=== PATIENT | male | born 1970 | race Caucasian/White ===

== ENCOUNTER 2016-09-29 19:18 | Inpatient (IN) | payer OTHER ==
--- NOTE | ~2016-09-29 | CN ---
Consultation Report [facility] [address] [place]. [address] NAME: JUANITA TORIBIO : 66 STATUS : ADM IN PAT#: [id number] AGE: 46 ADM/REG DATE : 09/29/16 MR#: [id number] REPORT SERV DATE: 09/29/16 DICTATED BY: JEFFREY CUEVAS DATE: 09/29/16 REPORT STATUS : Draft TRANSCRIBED BY: MODL DATE: 09/29/16 CONSULT DATE OF CONSULTATION: 09/29/2016 CONSULTING PHYSICIAN: Cristopher Love M.D. REASON FOR CONSULTATION: Ventilator management. HISTORY OF PRESENT ILLNESS: The patient is a 46-year-old white gentleman with past medical history of hepatitis C and cirrhosis, with a history of esophageal varices, with a history of bleeding followed by Dr. Madrigal, as well as chronic thrombocytopenia, who was admitted to outside hospital back on 09/14/2016 after presenting with shortness of breath, nonproductive cough, malaise, body aches, worsening confusion, lethargy, and generalized weakness. At that time, he was found to have a multifocal bilateral pneumonia and was intubated in the emergency room for respiratory failure and altered mental status. In reviewing the outside records, the best I can tell, he has been treated with antibiotics for his pneumonia, and at some point had a bronchoscopy which grew MRSA. He appears to have a chest x-ray and chest CTs that show worsening right-sided loculated effusion that is concerning for complicated parapneumonic effusion or empyema, and he was, therefore, transferred here to Dr. Love's service for consideration of VATS procedure. He remains on the ventilator, so we are consulted for ventilator management. Currently, the patient is hemodynamically stable in the ICU though his blood pressure is a little borderline. He does have some bright red blood in his OG tube. Otherwise, he is sedated and stable. PAST MEDICAL HISTORY: 1. Hepatitis C. 2. Cirrhosis. 3. Chronic thrombocytopenia. 4. Portal hypertension. 5. History of esophageal varices with a history of bleeding, followed by Dr. Madrigal. 6. History of cholecystectomy. 7. History of microdiscectomy. HOME MEDICATIONS: See medication reconciliation form. ALLERGIES: NO KNOWN DRUG ALLERGIES. SOCIAL HISTORY: A 30- to 64-[id number]-[id number] history of tobacco use. No alcohol or IV drug abuse. FAMILY HISTORY: Per the chart. Father and brother with heart disease. Hypertension in his mother. REVIEW OF SYSTEMS: Consultation Report [place] [address] [place]. [address] NAME: JUANITA TORBIIO : 66 STATUS : ADM IN PAT#: [id number] AGE: 46 ADM/REG DATE : 09/29/16 MR#: [id number] REPORT SERV DATE: 09/29/16 DICTATED BY: JEFFREY CUEVAS DATE: 09/29/16 REPORT STATUS : Draft TRANSCRIBED BY: TRUNG DATE: 09/29/16 Unable to obtain secondary to intubation and sedation. PHYSICAL EXAMINATION: VITAL SIGNS: Temperature afebrile, heart rate 84, respiratory rate 23, and blood pressure 103/52. GENERAL: Sedated and intubated. HEENT: Pupils equal, round, and reactive to light. Extraocular movements intact. Oropharynx clear. NECK: ET tube in place. Supple and nontender. No lymphadenopathy. No thyromegaly. LUNGS: Coarse breath sounds bilaterally. No wheezes. CARDIOVASCULAR: Regular rate and rhythm. No murmurs, rubs, or gallops. ABDOMEN: Soft, nontender, and nondistended. Positive bowel sounds. No hepatosplenomegaly. EXTREMITIES: No cyanosis, clubbing, or edema. NEUROLOGIC: Sedated. PSYCHIATRIC: Unable to assess. LABS AND IMAGING: Pending at the time of dictation. ASSESSMENT AND PLAN: The patient is a 46-year-old gentleman with past medical history of hepatitis C cirrhosis with esophageal varices with a history of bleeding, who presented to an outside hospital, found to have a multifocal pneumonia with a hospital course complicated by loculated right-sided pleural effusion concerning for parapneumonic effusion versus empyema. He is transferred here to the CT Surgery Service for consideration of a VATS surgery. We will get an ABG and a chest x-ray and wean the patient's ventilator as tolerated. We will also try to get his outside CT scan that he had done 2 days ago so the surgeons can review this. We will continue vancomycin and Zosyn. Cultures at the outside hospital were positive for MRSA. We will repeat sputum cultures here. We will also repeat blood cultures x2. The patient has borderline blood pressure right now, so we have given him some IV fluids and we will start Levophed if needed to maintain a MAP greater than 65. The patient is also having some bright red blood in his OG tube. He does have a history of esophageal varices. No record of bleeding at the outside hospital. We will send a stat CBC and trend his CBCs q.6 hours for the next 24 hours. We will also start him on an octreotide and Protonix drip and get Dr. Madrigal to see the patient tomorrow. We will continue to follow along the patient with you. Please call with questions. I appreciate the consult. Total critical care time spent on this patient was 45 minutes. SVITLANA/TRUNG Jeffrey Cuevas MD / [id number]
--- NOTE | ~2016-09-29 | DS ---
Discharge Summary [facility] [address] [place]. [address] NAME: JUANITA TORIBIO : 66 STATUS : DIS IN PAT#: [id number] AGE: 46 ADM/REG DATE : 09/29/16 MR#: [id number] REPORT SERV DATE: 10/23/16 DICTATED BY: VANESSA LVOE JR. DATE: 10/22/16 REPORT STATUS : Draft TRANSCRIBED BY: MODAvani DATE: 10/22/16 Data Collection from hospitalization DISCHARGE DIAGNOSES: 1. ( ). 2. ( ). 3. ( ). CONSULTATIONS: 1. Juan Cuevas MD. 2. Keven Ramos M.D. 3. LAURIE Cortez. 4. Nell Corcoran M.D. PROCEDURES PERFORMED: 1. Placement of left chest tube on 10/01/2016. 2. Chest tube placement under fluoroscopic control on 09/30/2016. 3. Abdominal ultrasound on 10/06/2016. 4. Ultrasound-guided paracentesis on 10/07/2016. PATHOLOGY: Peritoneal fluid, right quadrant paracentesis (smears, ThinPrep, and cell block) - benign, no malignant cells identified, mixed inflammatory cells background noted. Peritoneal fluid, right quadrant paracentesis (smears, ThinPrep, and cell block) - benign, no malignant cells identified, mixed inflammatory cell background noted. MEDICATIONS: 1. ( ). 2. ( ). CONDITION AT DISCHARGE: Stable. DISPOSITION: The patient was transferred to [facility]. HOSPITAL COURSE: This is a 46-year-old man who began having a respiratory illness and presented to the emergency room at [facility] on 09/14/2016. Prior to this admission for one week, he has had fatigue and was exposed to other family members who were sick. At the time of admission, he had a significant decline in his respiratory status and required intubation. He was progressively becoming more ill and was felt to be septic. He has a past medical history significant for hepatitis C, cirrhosis, esophageal varices, and chronic thrombocytopenia. It was felt that he would need to undergo a bronchoscopy on 09/15/2016. He underwent bronchoscopy, but continued to remain ill with a drop in his platelets. He continued to undergo multiple bronchoscopies over the next week with no significant improvement. He was found to have occult blood in the stool also. On 09/27/2016, a chest x-ray showed a large rapidly accumulating right pleural effusion. We were asked to transfer him to [facility] for a higher level of care and possible surgical intervention. He was admitted to the hospital at this time for further evaluation and treatment. Discharge Summary [place] [id number] [place] [address] NAME: JUANITA TORIBIO : 66 STATUS : DIS IN PAT#: [id number] AGE: 46 ADM/REG DATE : 09/29/16 MR#: [id number] REPORT SERV DATE: 10/23/16 DICTATED BY: VANESSA LOVE JR. DATE: 10/22/16 REPORT STATUS : Draft TRANSCRIBED BY: MODAvani DATE: 10/22/16 Upon admission, white count was 3.7. He was felt to have hypoxic respiratory failure, requiring mechanical intervention. Given his liver dysfunction, it was felt that he would likely require long-term chest tube. He continued to have a decline in his white count as well as low platelets. He was going to be transfused with plasma and platelets. His condition was critical at this time and it was felt that he may need further liver intervention in the near future. He had been seen by Dr. Juan Cuevas regarding ventilator management. He had been intubated in the emergency room for respiratory failure and altered mental status. He had grown MRSA when he had a bronchoscopy. Chest x-ray and chest CT had shown worsening right-sided loculated effusion that was concerning for complicated parapneumonic effusion or empyema. He had been transferred here for consideration of a VATS procedure. He remained on the ventilator. He was currently hemodynamically stable in the ICU, although his was blood pressure was a little borderline. He did have some bright red blood in his OG tube. Repeat blood cultures were obtained as well as sputum cultures. IV fluids had been started. Levophed would be started if needed to maintain MAP greater than 65%. He has a history of esophageal varices. There was no record of bleeding at the outside hospital. He was going to be started on octreotide and Protonix drip. The following day, he was seen by Dr. Keven Ramos. Creatinine level was 1.7. He was felt to have acute kidney injury post sepsis. It was suspected that he had aspiration pneumonia a couple of days prior to this admission despite being intubated. This is in a patient with immunosuppression secondary to his underlying cirrhosis and concern regarding hepatorenal syndrome, although nonoliguric in doubt. We would need to treat the pneumonia and support his volume status and follow. He had initially seen this patient at [facility] the previous week. 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 He was encephalopathic, thought to be secondary to medication versus alcohol, high ammonia. Ammonia was being corrected with lactulose. He was on sliding scale insulin. Tube feedings would be provided. The patient underwent chest tube placement under fluoroscopic control. He was seen by Dr. Riccardo Madrigal. Dr. Madrigal had agreed with placing a pigtail catheter. He felt that the patient's condition was critical. He felt that the patient was at high risk for having renal and liver failure. On 10/01/2016, he remained on the ventilator. He was seen by Luc Marcum. The patient had been on OG-tube feedings with high residuals noted. He has had a slight decrease in his hemoglobin, but at the present time it appeared to be stable. He was being maintained on an octreotide drip as well as a Protonix drip. About 900 mL of fluid had been taken off with the right chest tube. There were no plans for surgical intervention at this time by Cardiothoracic Surgery. There were no immediate plans for endoscopy unless large volume GI bleeding was present as well as a large drop in his hemoglobin. Chest x-ray appeared improved on the right side, status post chest tube placement. Reglan was initiated. Protonix was continued as well as an octreotide drip. Rifaximin was going to be continued. The patient developed respiratory distress on the ventilator. Examination revealed evidence of left tension pneumothorax. Dr. Gil Caceres placed a left chest tube. Supportive care continued. On 10/02/2016, next drip was continued. He had no overt GI bleeding. There was no blood in the NG tube. INR level was 1.6. A discussion was held with the patient's regarding his guarded/critical condition. Over the next couple of days, he remained on the ventilator. CPAP trial was going to be attempted. White blood cell count was 3.0. Vancomycin was continued. On 10/05/2016, the patient was extubated. His temperature was 99.8. Chest x-ray showed small left pneumothorax and basilar atelectasis. The patient did have low blood pressure. Discharge Summary [place] [id number] [facility] [place] [address] NAME: JUANITA TORIBIO : 66 STATUS : DIS IN PAT#: [id number] AGE: 46 ADM/REG DATE : 09/29/16 MR#: [id number] REPORT SERV DATE: 10/23/16 DICTATED BY: VANESSA LOVE JR. DATE: 10/22/16 REPORT STATUS : Draft TRANSCRIBED BY: TRUNG DATE: 10/22/16 D5W IV fluids were being provided. Levophed drip continued. He had trace edema. His abdomen was distended. We were awaiting liver cytology results. Creatinine level was now 2.19. IV Bumex was continued. Zosyn was decreased. Vancomycin was continued. His sodium level was 154. It was felt that he would need to be transferred to [place] or [facility] once his liver cytology results were back. RST and urine studies were going to be checked. The patient is not a candidate for hemodialysis. He did have a low-grade temperature. Speech/Language pathology performed a bedside swallow evaluation. He has severe aphonia and moderate/severe impaired range of motion of oral musculature and overt signs and symptoms of aspiration. He has severe dysphonia. Aspiration precautions were in place. The next day, antibiotics were continued. It was felt that the patient would need to undergo a paracentesis. An abdominal ultrasound was performed. On 10/07/2016, ultrasound-guided paracentesis was performed, 4 liters of clear yellow ascites was removed from the peritoneal cavity, not all of the fluid was removed. Spironolactone was being restarted. He still had increased O2 requirement and chest tube has been removed. FiO2 was going to be weaned. Cipro was added to his regimen. Heart rate was in the 90s. Right-sided chest tube was going to be removed as there had been no output for about 48 hours. X-ray showed bilateral infiltrates with pulmonary venous congestion. There was minimal residual left apical pneumothorax. Creatinine level was 2.51. He was evaluated by Occupational and Physical Therapy. Dr. Annemarie Newman met with the patient's . After discussing the case with all participating providers, Dr. Madrigal had communicated with the chief of liver transplant surgery at [facility]. To be a liver transplant candidate, the patient must be able to walk in the halls with a walker. At this point, he was able to sit up on the side of the bed with physical therapy assistance for about six minutes, but was not able to stand. According to Dr. Paz, the patient is not a candidate for any form of dialysis. Explained to the patient's that his best hope for survival was to get stronger for eventual OLT evaluation. He was going to be moved to the [facility]. We specifically discussed that as the patient was not a dialysis candidate and not a liver transplant candidate at this point, that ACLS/intubation would not be appropriate as it would be a bridge to ??? The patient's understood and was in agreement with this plan of care. She was going to start working along with Physical Therapy to get him stronger if feasible. She verbalized her understanding and agreement with no vent/shock/CPR. We discussed that his code status could be changed if he were to improve or become a dialysis candidate. All of her questions were answered. On 10/09/2016, creatinine level was 2.67. He was still on the Bumex drip. Urine output had increased. His diabetes was under better control. Vancomycin was continued. Vapotherm was now down to 45%. He seemed to be more responsive. The goal was to get the patient to ambulate and then to [facility] for liver transplant evaluation. Bedside swallow study was again performed. The patient had dysphonia, which indicates possible vocal fold dysfunction and compromised airway protection. There were no overt signs or symptoms of aspiration. Aspiration precautions were in place. The next day, the patient said he was thirsty. Chest x-ray showed no recurrence of right pleural effusion. Urine output had increased. On 10/12/2016, he said he was feeling better overall. The patient was seen by Dr. Nell Corcoran. He seemed to be feeling better. He was still weak and fatigued. He was coughing. He had trace bilateral lower extremity edema. Aggressive pulmonary toilet continued. He was going to be moved out of the ICU. Renal function was stable. He remained on octreotide. On 10/13/2016, he was in no acute distress. He did have rhonchi in Discharge Summary [address] [address] NAME: JUANITA TORIBIO : 66 STATUS : DIS IN PAT#: [id number] AGE: 46 ADM/REG DATE : 09/29/16 MR#: [id number] REPORT SERV DATE: 10/23/16 DICTATED BY: VANESSA LOVE JR. DATE: 10/22/16 REPORT STATUS : Draft TRANSCRIBED BY: TRUNG DATE: 10/22/16 his lungs. He had no dyspnea. He remained a poor hemodialysis candidate. There was no acute indication for hemodialysis at this time. Supportive care continued. He remained on Sandostatin. Midodrine was discontinued. The next day, he seemed to be doing okay. The patient still has a Dobhoff tube. He was tolerating Ensure. Renal function remained stable. Discharge planning was performed. On 10/15/2016, the patient wants to be transferred to [facility]. He understood the risks, benefits, and alternatives. It was elected to transfer the patient to [facility]. Discharge instructions were given. Due to his stable condition, he was transferred to [facility]. Information collected by: Portia Jamison I submit the above information as my discharge summary. ESTEFANIA/TRUNG Vanessa Love Jr., M.D. / [id number] CC: Kvng Richter Jr., M.D. Chirag Patel, M.D. Joseph Watlington, M.D. Destin Griffin-Trussell [employer] [facility]
--- NOTE | ~2016-09-29 | CN ---
Consultation Report [facility] [address] [place]. [address] NAME: JUANITA TORIBIO : 66 STATUS : ADM IN PAT#: [id number] AGE: 46 ADM/REG DATE : 09/29/16 MR#: [id number] REPORT SERV DATE: 10/01/16 DICTATED BY: LUCI CONTRERAS DATE: 10/01/16 REPORT STATUS : Draft TRANSCRIBED BY: MODAvani DATE: 10/01/16 GI CONSULTATION DATE OF CONSULTATION: 10/01/2016 REASON FOR CONSULTATION: "Questionable upper GI bleeding." HISTORY OF PRESENT ILLNESS: Mr. Toribio is a 46-year-old male patient, who is known to Dr. Parth Sanchez, as well as Dr. Riccardo Madrigal, who has a pertinent past medical history of hepatitis C cirrhosis, as well as grade 2 esophageal varices and portal hypertensive gastropathy and chronic thrombocytopenia. It appears he was admitted to [facility] on 09/14/2016, where he presented with a chief complaint of shortness of breath, nonproductive cough, body aches, and malaise and confusion with lethargy and generalized weakness. He had been around family members who had been sick with the flu, as well as bronchitis. He was found to have multifocal bilateral pneumonia. He was intubated shortly after arrival to the hospital secondary to acute hypoxic respiratory failure. He looks like he was treated for a type of pneumonia after he had a bronchoscopy, which grew MRSA. Chest x-ray showed worsening of some right-sided loculated effusion with him being concerned for either parapneumonic effusion versus empyema, thus transferred to [facility] for higher level care was obtained. It appears that he has been on OG-tube feedings with noted high residuals. He has had a slight decrease in his hemoglobin, but at present, it appears to be stable. I cannot find where he received any blood transfusion as in the way of packed red blood cells, but it does appear he has had platelet transfusion secondary to his severe low platelet count. At present, he is being maintained on an octreotide drip, as well as a Protonix drip. I have discussed the case with Dr. Riccardo Madrigal who has seen him for two days now, as well as Saroj Hernandez, who is the nurse practitioner with Dr. Ivan. The patient is status post right chest tube with around 900 mL of fluid taken off on the . There are no plans for any surgical intervention by Cardiothoracic Surgery at this time. Presently, we will monitor the patient's status. No immediate plans for endoscopy unless large volume GI bleeding is present, as well as a large drop in his hemoglobin. PAST MEDICAL HISTORY: Positive for hepatitis C, cirrhosis of the liver, chronic thrombocytopenia, portal hypertensive gastropathy, grade 2 esophageal varices, and reflux esophagitis. PAST SURGICAL HISTORY: Cholecystectomy and microdiskectomy. ALLERGIES: NO KNOWN ALLERGIES. SOCIAL HISTORY: Positive tobacco. Previous alcohol. No illicit drugs. FAMILY HISTORY: Noncontributory from a GI standpoint. HOME MEDICATIONS: Listed to Xanax, vitamin C, Pristiq, ferrous sulfate, Constulose, Consultation Report [address] [address] NAME: JUANITA TORIBIO : 66 STATUS : ADM IN [facility]#: [id number] AGE: 46 ADM/REG DATE : 09/29/16 MR#: [id number] REPORT SERV DATE: 10/01/16 DICTATED BY: LUCI CONTRERAS N DATE: 10/01/16 REPORT STATUS : Draft TRANSCRIBED BY: MODL DATE: 10/01/16 Prilosec, Endocet, Inderal, Aldactone, and Carafate. REVIEW OF SYSTEMS: Unable to be obtained secondary to the patient's mental status. PHYSICAL EXAMINATION: VITAL SIGNS: Temperature 98.2, pulse 99, respirations 22, blood pressure 110/56. NEURO: Reveals a chronically ill-appearing male, resting in bed, who opens his eyes, but he has nonpurposeful movements. GENERAL: He is in no obvious acute distress. HEAD, EARS, EYES, NOSE, AND THROAT: Mildly icteric. Pupils are equal, round, reactive to light and accommodation. Normocephalic and atraumatic. NECK: No JVD. No palpable nodes. CHEST: He has a right chest tube with some light yellow drainage. LUNGS: Coarse with rhonchi. He is ventilator dependent. CARDIOVASCULAR SYSTEM: Regular rate and rhythm, however, tachycardic. ABDOMEN: Round and distended with extremely hypoactive bowel sounds. Unable to assess organomegaly. EXTREMITIES: Positive for edema. SKIN: Warm, dry, and intact. PERTINENT LABORATORY DATA: Sodium is 148, potassium 4.3, BUN 59, creatinine 1.73. White count 1.4, hemoglobin 7.3, hematocrit is 22.8, platelet count 48, and INR of 1.7. Total bilirubin is 3.1, alkaline phosphatase 41, ALT 20, AST 22, pre-albumin is 7.5, ammonia level is 43. No stool studies have been obtained. Chest x-ray today appears improved on the right side status post chest tube placement. ASSESSMENT: 1. Acute blood loss anemia. He was Hemoccult positive with a history of esophageal varices. 2. Cirrhosis, hepatitis C with a history of alcoholism, as well as history of grade 2 varices banded in July 2016. 3. Type 2 diabetes with likely a component of diabetic gastroparesis. 4. Status post right pleural effusion with a chest tube placed on 09/30. Initial concern was for empyema versus parapneumonic effusion. 5. Respiratory failure, vent dependent. 6. Encephalopathy. 7. Thrombocytopenia. PLAN: 1. We will initiate Reglan. 2. Continue Protonix and octreotide drip with no immediate plans for EGD at this time. We will discuss the case further with Dr. Lala, as well as discussed with Dr. Madrigal daily. Consultation Report [address] [address] NAME: JUANITA TORIBIO : 66 STATUS : ADM IN PAT#: [id number] AGE: 46 ADM/REG DATE : 09/29/16 MR#: [id number] REPORT SERV DATE: 10/01/16 DICTATED BY: LUCI CONTRERAS DATE: 10/01/16 REPORT STATUS : Draft TRANSCRIBED BY: MODL DATE: 10/01/16 3. Continue Rifaximin. Question lactulose at some point to produce bowel movements. I will follow. SERVANDO/MARTINAL LAURIE Cortez / [id number] CC: Kvng Richter Jr., M.D.
--- NOTE | ~2016-09-29 | HP ---
History And Physical [id number] [place]. [address] NAME: JUANITA TORIBIO : 66 STATUS : ADM IN [facility]#: [id number] AGE: 46 ADM/REG DATE : 09/29/16 MR#: [id number] REPORT SERV DATE: 10/01/16 DICTATED BY: MICHAEL HERNANDEZ DATE: 10/01/16 REPORT STATUS : Draft TRANSCRIBED BY: TRUNG DATE: 10/01/16 DATE OF ADMISSION: 09/29/2016 DICTATING FOR: Cristopher Love M.D. REASON FOR ADMISSION: Respiratory failure with right pleural effusion. BRIEF HISTORY: This is a 46-year-old white male who began having respiratory illness and presented to the emergency room at [facility] on 09/14/2016. Prior to his admission for 1 week, he had had fatigue and had been exposed to other family members who were sick. Upon admission, he had a significant decline in his respiratory status and required intubation. He was progressively becoming more ill and felt to be septic. He has a past medical history significant for hepatitis C, cirrhosis, esophageal varices, and chronic thrombocytopenia. Upon further evaluation, it was felt that he would need to undergo bronchoscopy. On 09/15/2016, he was taken for bronchoscopy, but continued to remain ill with drop in his platelets. He continued to undergo multiple bronchoscopies over the next week with no significant improvement. He was found to have occult blood in the stool also. On 09/27/2016, he underwent CT scan of the chest, which showed pleural effusion with likely bilateral pneumonia. On 09/29/2016, chest x-ray showed a large rapidly accumulating right pleural effusion. We were asked to transfer him from [facility] for higher level of care and possible surgical intervention. PAST MEDICAL HISTORY: Significant for hepatitis C, alcohol-induced cirrhosis, esophageal varices, chronic thrombocytopenia, portal hypertension, untreated diabetes mellitus type 2, history of esophageal bleeding, gastroesophageal reflux disease, anxiety, and tobacco abuse. SURGICAL HISTORY: Includes cholecystectomy in 2010, L5-S1 microdiskectomy in 2013, maureen placed in his leg for a tib-fib fracture in 2012, banding of esophageal varices the last year. SOCIAL HISTORY: The patient is with child. He is disabled. He smoked one to one half pack per day for approximately 30 years. He was an alcoholic, but quit drinking approximately a year ago. FAMILY HISTORY: Significant for his father dying of a myocardial infarction, age 59. His brother also has coronary artery disease. His mom has hypertension. ALLERGIES: NONE. HOME MEDICATIONS: Include Xanax 0.5 mg p.o. twice daily, vitamin C 1000 mg p.o. daily, Pristiq 100 mg p.o. daily, ferrous sulfate 325 mg p.o. twice daily, lactulose 30 mL p.o. daily, Prilosec 40 mg p.o. daily, Endocet 5/325, 1 tab p.o. twice daily, Inderal 40 mg p.o. twice daily, spironolactone 25 mg daily, Carafate 1 g before meals and at night. REVIEW OF SYSTEMS: Was unable to be obtained secondary due to the patient being sedated on the respirator. History And Physical [address] [address] NAME: JUANITA TORIBIO : 66 STATUS : ADM IN [facility]#: [id number] AGE: 46 ADM/REG DATE : 09/29/16 MR#: [id number] REPORT SERV DATE: 10/01/16 DICTATED BY: MICHAEL HERNANDEZ DATE: 10/01/16 REPORT STATUS : Draft TRANSCRIBED BY: TRUNG DATE: 10/01/16 PHYSICAL EXAMINATION: GENERAL: A 46-year-old white male, currently sedate on the respirator. He is in no acute distress at this time. CONSTITUTIONAL WITH VITAL SIGNS: Blood pressure 117/58, oxygen saturation 97%, heart rate 90s and currently afebrile. HEAD, EARS, EYES, NOSE, AND THROAT: Normocephalic, atraumatic. Pupils equal, round and reactive to light. Ears, nose, and throat without drainage, lesions, or exudates noted. He is intubated currently. CHEST: With symmetrical bilateral movement. No chest wall deformities noted. There is no axillary lymphadenopathy noted. CARDIOVASCULAR: Revealed a regular rate and rhythm S1, S2. No gallop, murmur, or rub. RESPIRATORY: With decreased breath sounds in the right chest and scattered rhonchi throughout the left lung. He is intubated on ventilator. There was no distress noted currently. GASTROINTESTINAL: Abdomen soft, nontender, mildly distended with ascites noted over the right quadrant. There is no abdominal aortic bruits or hernias noted. : The patient has a Madrid catheter in place with concentrated yellow urine. All other anatomy is otherwise normal. MUSCULOSKELETAL: Without obvious kyphosis or scoliosis noted. There are no significant bony abnormalities. There is normal range of motion in all 4 extremities. NEUROLOGIC: The patient is currently sedate but responds to painful stimulus. He moves all extremities x4. SKIN: Warm and dry with no breakdown or lesions noted. There is mild jaundice noted. There is a normal turgor otherwise. HEMATOLOGIC/LYMPHATIC: Without obvious petechiae or ecchymosis noted. There is no supraclavicular, cervical, or axillary lymphadenopathy noted. EXTREMITIES: Without clubbing or cyanosis. There is mild edema in the lower extremities. PSYCHIATRIC: Unable to be performed secondary to the patient being sedated. DATA: Abdominal ultrasound dated 09/14/2016 showing possible cirrhosis with splenomegaly. The kidneys were also unremarkable on that study. Laboratory data dated 09/15/2016 haptoglobin CQ 24, ferritin 925, iron 45, iron sat 25%, TIBC 152, hemoglobin A1c 8.5, B12 910, folate 13.3, transferrin 130, lactic acid 3.2. Sputum culture dated 09/15/2015 negative for acid-fast bacilli, negative for Legionella, light growth of Kiara, no malignant cells noted. It was positive for MRSA. Bronchoscopy dated 09/17/2016 showing acute inflammation and no malignant cells. Blood cultures dated 09/25/2016 negative for days. Occult blood in stool positive dated 09/26/2016. CT of the chest dated 09/27/2016 showing a right pleural effusion with bilateral pneumonia. There is no other lung masses noted. History And Physical [address] [address] NAME: JUANITA TORIBIO : [birth year] STATUS : ADM IN [facility]#: [id number] AGE: 46 ADM/REG DATE : 09/29/16 MR#: [id number] REPORT SERV DATE: 10/01/16 DICTATED BY: MICHAEL HERNANDEZ DATE: 10/01/16 REPORT STATUS : Draft TRANSCRIBED BY: MODL DATE: 10/01/16 Labs dated 09/30/2016: Ammonia 47, white blood count 3.7, hemoglobin 8.8, hematocrit 27.2, platelets 48. Sodium 147, potassium 4.2, BUN 58, creatinine 1.71, glucose 91, albumin 2.4, magnesium 2.8, direct bilirubin 2.4, indirect bilirubin 1.0, total bilirubin 2.3, alkaline phosphatase 4, ALT 19, AST 25. KUB dated 09/30/2016, no ileus, unremarkable gas pattern noted. Chest x-ray dated 09/30/2016 showing increasing right pleural effusion with possible loculations. PROBLEM LIST: 1. Hypoxic respiratory failure requiring mechanical ventilation. 2. Increasing right pleural effusion. 3. Sepsis. 4. Acute on chronic thrombocytopenia. 5. Acute kidney injury. 6. Cephalopathy. 7. Cirrhosis. 8. Hepatitis C. 9. Esophageal varices. 10.Portal hypertension. 11.Diabetes mellitus type 2, noninsulin dependent. 12.Gastroesophageal reflux disease. 13.Tobacco abuse. 14.Occult positive blood in stool. 15.Anxiety. 16.Anemia. IMPRESSION AND PLAN: A 46-year-old white male with multiple organ system dysfunction including acute renal insufficiency with elevated creatinine of 1.7, respiratory failure requiring mechanical ventilation, cirrhosis of the liver with portal hypertension, anemia, diabetes, and encephalopathy. He is transferred for his increasing right pleural effusion. I do not think at this time he would tolerate single lung ventilation nor would be safe from a bleeding perspective to proceed on with any type of thoracoscopy. Given his liver dysfunction, he would likely require long-term chest tube also. He continues to have decline in his white count as well as low platelets. He was seen by Dr. Madrigal, his continuous improvement black belt and agrees with placing a pigtail catheter. We will transfuse him with plasma and platelets prior to doing so, however. We will also ask the kidney doctor as well as a pulmonary implementation specialist payroll to help in his care. The condition is critical at this time and may need further liver interventions in the near future. We will go ahead and make arrangements for the Radiology to place a large bore pigtail catheter in his chest later today or tomorrow, and continue supportive care with antibiotics and other medications until that time. EMILE/MODL History And Physical [address] [address] NAME: JUANITA TORIBIO : 66 STATUS : ADM IN PAT#: [id number] AGE: 46 ADM/REG DATE : 09/29/16 MR#: [id number] REPORT SERV DATE: 10/01/16 DICTATED BY: MICHAEL HERNANDEZ DATE: 10/01/16 REPORT STATUS : Draft TRANSCRIBED BY: MODL DATE: 10/01/16 Michael Hernandez NP / [id number] CC: Kvng Richter Jr., M.D.
--- NOTE | ~2016-09-29 | OP ---
Record Of Operation [facility] [address] [place]. [address] NAME: JUANITA TORIBIO : 66 STATUS : ADM IN [facility]#: [id number] AGE: 46 ADM/REG DATE : 09/29/16 MR#: [id number] REPORT SERV DATE: 10/02/16 DICTATED BY: DAVID CACERES DATE: 10/01/16 REPORT STATUS : Draft TRANSCRIBED BY: MODL DATE: 10/01/16 DATE OF PROCEDURE: 10/01/2015 The patient developed respiratory distress on ventilator. Examination revealed evidence of left tension pneumothorax. PROCEDURE: Placement of left chest tube. INDICATION: After ChloraPrep scrub, I put a needle in the second intercostal space midclavicular line for relief. Then, the left side was prepped with chlorhexidine. Xylocaine 1% used for anesthesia. A scalpel incision, blunt dissection, finger exploration was done. Size 28 chest tube was placed without difficulty into the pleural space, sutured in place. Sterile technique used throughout. Chest x-ray showed evidence re-expansion of lung. RP/TRUNG David Caceres M.D. / [id number] CC: Kvng Richter Jr., M.D.
--- NOTE | ~2016-09-29 | CN ---
Consultation Report [facility] [address] [place]. [address] NAME: JUANITA TORIBIO : 66 STATUS : ADM IN [facility]#: [id number] AGE: 46 ADM/REG DATE : 09/29/16 MR#: [id number] REPORT SERV DATE: 09/30/16 DICTATED BY: KEVEN ALMONTE DATE: 09/30/16 REPORT STATUS : Draft TRANSCRIBED BY: MODL DATE: 09/30/16 NEPHROLOGY CONSULT DATE OF CONSULTATION: 09/30/2016 HISTORY OF PRESENT ILLNESS: Mr. Toribio is a 46-year-old, white male with hepatitis C and alcoholic cirrhosis, admitted to the hospital at [facility] for hypoxia, respiratory insufficiency, intubated and ventilated in the emergency room on 09/14/2016, and found to have a right-sided infiltrate by CTA. Abdominal ultrasound showed unremarkable kidneys, no hydronephrosis, was admitted to the hospital there, consulted Renal. We saw him there, creatinine was 1.8 initially, david down to 1.4. We signed off. He was stable for a while on ventilator in the ICU but apparently aspirated two days ago and was transferred here yesterday for possible decortication of his right lung for loculated effusion. He is too sick to have that done currently and we are stabilizing him prior to any procedures. PAST MEDICAL HISTORY: Significant for diabetes mellitus type 2. Status post hepatitis C and alcoholic hepatitis with cirrhosis and esophageal varices, which were treated in 2016. Also had a fractured tib-fib with maureen placement in 2012, microdiskectomy in 2016, and no history of renal disease. Baseline creatinine 0.8. FAMILY HISTORY: Positive coronary artery disease in a brother and father. SOCIAL HISTORY: Stopped alcohol last year late, still continues to smoke heavily. He is . ALLERGIES: HE HAS NO KNOWN DRUG ALLERGIES. CURRENT MEDICATIONS: Melatonin, Zosyn, vancomycin, fentanyl, Haldol, Protonix, Diprivan. Electrolyte replacement protocol. REVIEW OF SYSTEMS: He is unable to get review of systems because of intubated and ventilated. PHYSICAL EXAMINATION: VITAL SIGNS: Blood pressure 115/56, heart rate 93, respirations 22, on a ventilator. Afebrile. HEENT: Oral ET tube, oral gastric tube. HEENT examination is otherwise unremarkable. LUNGS: Shows rales on the right side on a ventilator. CARDIOVASCULAR: Without rub. Irregular rhythm. ABDOMEN: Soft. Bowel sounds are present but scant, nontender. EXTREMITIES: 2+ edema bilaterally lower extremities. Good pulses. Right arm PICC line. SKIN: No jaundice noted. No open sores. LABORATORY DATA: Shows a blood gas of 7.38, pCO2 46, pO2 74, 65% FiO2 on the ventilator. White count 3.7, hemoglobin 8.8, hematocrit 27.2, platelet count 48,000. Ammonia is 47, Consultation Report [id number] [place]. [address] NAME: JUANITA TORIBIO : 66 STATUS : ADM IN PAT#: [id number] AGE: 46 ADM/REG DATE : 09/29/16 MR#: [id number] REPORT SERV DATE: 09/30/16 DICTATED BY: KEVEN ALMONTE DATE: 09/30/16 REPORT STATUS : Draft TRANSCRIBED BY: MODAvani DATE: 09/30/16 lactic acid is 1.1. Sodium 147, potassium 4.2, chloride 111, CO2 29, BUN of 58, creatinine 1.7. Blood sugar 91. Calcium 7.3, magnesium 2.8, phosphorus 4.2 with albumin 2.4. Pre- albumin was low at 7.5. Chest x-ray, large right-sided effusion. ET tube in place. PICC line in right arm. ASSESSMENT: 1. Acute kidney injury post sepsis. Suspect aspiration pneumonia couple days ago despite being intubated. This is in a patient with immunosuppression secondary to his underlying cirrhosis and concern regarding hepatorenal syndrome, although nonoliguric in doubt. We will need to treat pneumonia, support his volume status and follow. This is a reconsult. We saw him initially at [facility] last week. 2. Aspiration pneumonia on therapy. 3. Cirrhosis secondary alcohol and hepatitis C. Dr. Riccardo Madrigal saw this morning. 4. Low platelets, low white count, thought to be secondary to splenomegaly. 5. Encephalopathic, thought to be secondary to medications versus alcohol high ammonia. Ammonia is being corrected with lactulose. 6. Diabetes mellitus type 2 on sliding scale. 7. Ventilator dependence since 09/14/2016 when he presented to the emergency room at [facility]. 8. Tube feedings. PLAN: Follow with you. I have discussed the case DrMirella Carnes with Dr. Love's office. We will talk to . CLIFF/TRUNG Keven Almonte M.D. / [id number] CC: Cristopher Love Jr., M.D.
[~2016-09-29 19:18] MED LIST: CONSTULOSE PO; DIL2TAB PO; FERROUS SULF325 M1 PO; INDE120LA PO; NEUR300 PO; OXYCOD PO; PERCOCET1 TA4 PO; PRESTIQ PO; PRILOSEC40 MG PO; PRISTIQ100 MG PO; SPIRO25 PO; SUCR PO; VALIUM10 MG PO; VITC500 PO; X5 PO; XANAX XR3 MG PO; XANAX1 MG PO
[2016-09-29 21:21] LABS: PLATELET COUNT 50 10/3/uL (150-400)
[2016-09-29 21:22] LABS: HEMATOCRIT 25.5 % (40.0-51.0)
[2016-09-29 21:30] LABS: INTERNATIONAL NORMAL RATI 1.6 UNITS (-); PARTIAL THROMBO TIME 33.5 SEC (22.5-37.2)
[2016-09-29 21:31] LABS: CHLORIDE, SERUM 110 MMOL/L (96-112); CO2 (CARBON DIOXIDE) 30 MMOL/L (24-34); POTASSIUM, SERUM 3.7 MMOL/L (3.5-5.3); PROTIME (NOT ORD) 18.6 SEC (12.0-14.5)
[2016-09-29 21:34] LABS: BUN (BLOOD UREA NITROGEN) 60 MG/DL (6-23); CALCIUM, SERUM 7.3 MG/DL (8.5-10.4); CREATININE 1.58 MG/DL (0.70-1.30); GFR AFRICAN AMERICAN 59 ML/MIN (>=60); GFR NON AFRICAN AMERICAN 51 ML/MIN (>=60); GLUCOSE, SERUM 157 MG/DL (60-99); SODIUM, SERUM 148 MMOL/L (135-148)
[2016-09-29 23:02] LABS: BASOPHILS 0.5 %; BASOPHILS ABSOLUTE 0.02 10/3/uL (0.0-0.16); EOSINOPHILS 1.8 %; EOSINOPHILS ABSOLUTE 0.07 10/3/uL (0.0-0.53); IMMATURE GRANULOCYTES 0.3 %; IMMATURE GRANULOCYTES ABSOLUTE 0.01 10/3/uL (0.0-0.11); LYMPHOCYTES 16.3 %; LYMPHOCYTES ABSOLUTE 0.63 10/3/uL (0.67-4.30); MANUAL DIFF NO %; MEAN CORPUS HGB CONC 31.3 g/dL (32.0-36.0); MEAN CORPUSCULAR HEMOGLOB 35.1 pg (26.0-34.0); MEAN CORPUSCULAR VOLUME 112.3 fL (80-100); MEAN PLATELET VOLUME 11.6 fL (9.2-13.0); MONOCYTES 3.1 %; MONOCYTES ABSOLUTE 0.12 10/3/uL (0.21-1.20); NEUTROPHILS ABSOLUTE 3.01 10/3/uL (2.02-8.40); RBC DISTRIBUTION WIDTH 15.6 % (12.0-16.0); RED CELL COUNT 2.28 10/6/uL (4.7-6.1); WHITE BLOOD CELLS 3.9 10/3/uL (4.5-10.5)
[2016-09-29 23:22] LABS: PLATELET ESTIMATE DEC (ADEQUATE)
[2016-09-29 23:48] LABS: ALLENS TEST Pos; BE (BASE EXCESS) 4.9 MEQ/L (0 +/- 2.5); CARBOXYHEMOGLOBIN 0.5 % (0-3); HCO3 (ACTUAL BICARBONATE) 29.5 MEQ/L (23-27); HEMOBLOGIN CONTENT 8.9 G/DL (14-18); INSTRUMENT SERIAL # 11843; METHEMOGLOBIN 0.5 % (0-3); MODE CMV; O2 CONTENT 11.4 VOL% (18-24); OPERATOR ID 16469; PCO2 (CO2 TENSION) 44 MMHG (35-45); PO2 (O2 TENSION) 65 MMHG (79-93); SAMPLE Arterial; TIDAL VOLUME 500 ML; pH 7.44 (7.37-7.43)
[2016-09-30 03:28] LABS: ALLENS TEST Pos; BE (BASE EXCESS) 1.6 MEQ/L (0 +/- 2.5); CARBOXYHEMOGLOBIN 0.4 % (0-3); HEMOBLOGIN CONTENT 8.8 G/DL (14-18); INSTRUMENT SERIAL # 11843; METHEMOGLOBIN 0.5 % (0-3); MODE CMV; O2 CONTENT 11.4 VOL% (18-24); OPERATOR ID 17370; PCO2 (CO2 TENSION) 46 MMHG (35-45); PO2 (O2 TENSION) 74 MMHG (79-93); SAMPLE Arterial; TIDAL VOLUME 500 ML; pH 7.38 (7.37-7.43)
[2016-09-30 05:39] LABS: BASOPHILS 0.8 %; BASOPHILS ABSOLUTE 0.03 10/3/uL (0.0-0.16); EOSINOPHILS 1.1 %; EOSINOPHILS ABSOLUTE 0.04 10/3/uL (0.0-0.53); HEMATOCRIT 27.2 % (40.0-51.0); HEMOGLOBIN 8.8 g/dL (13.6-17.8); IMMATURE GRANULOCYTES 0.5 %; IMMATURE GRANULOCYTES ABSOLUTE 0.02 10/3/uL (0.0-0.11); LYMPHOCYTES 16.4 %; LYMPHOCYTES ABSOLUTE 0.61 10/3/uL (0.67-4.30); MEAN CORPUS HGB CONC 32.4 g/dL (32.0-36.0); MEAN CORPUSCULAR HEMOGLOB 37.3 pg (26.0-34.0); MEAN CORPUSCULAR VOLUME 115.3 fL (80-100); MEAN PLATELET VOLUME 11.6 fL (9.2-13.0); MONOCYTES 3.8 %; MONOCYTES ABSOLUTE 0.14 10/3/uL (0.21-1.20); NEUTROPHILS 77.4 %; NEUTROPHILS ABSOLUTE 2.88 10/3/uL (2.02-8.40); RBC DISTRIBUTION WIDTH 15.8 % (12.0-16.0); RED CELL COUNT 2.36 10/6/uL (4.7-6.1); WHITE BLOOD CELLS 3.7 10/3/uL (4.5-10.5)
[2016-09-30 05:44] LABS: PLATELET COUNT 48 10/3/uL (150-400)
[2016-09-30 05:45] LABS: MANUAL DIFF NO %
[2016-09-30 05:55] LABS: BUN (BLOOD UREA NITROGEN) 58 MG/DL (6-23); CALCIUM, SERUM 7.3 MG/DL (8.5-10.4); CHLORIDE, SERUM 111 MMOL/L (96-112); CO2 (CARBON DIOXIDE) 29 MMOL/L (24-34); CREATININE 1.71 MG/DL (0.70-1.30); GFR AFRICAN AMERICAN 54 ML/MIN (>=60); GFR NON AFRICAN AMERICAN 46 ML/MIN (>=60); POTASSIUM, SERUM 4.2 MMOL/L (3.5-5.3); SODIUM, SERUM 147 MMOL/L (135-148)
[2016-09-30 05:57] LABS: GLUCOSE, SERUM 91 MG/DL (60-99)
[2016-09-30 06:31] LABS: PLATELET ESTIMATE DEC (ADEQUATE); POIKILOCYTOSIS 1+ (5-10/OIF) (0-5/OIF)
[2016-09-30 06:32] LABS: OVALOCYTES 1+ (3-10/OIF) (0-2/OIF)
[2016-09-30 07:43] LABS: ALBUMIN 2.4 G/DL (3.5-5.0); ALKALINE PHOSPHATASE 44 U/L (45-117); DIRECT BILIRUBIN 1.3 MG/DL (0.0-0.4); PHOSPHORUS, SERUM 4.2 MG/DL (2.5-4.5); SGOT(AST) 25 U/L (5-40); SGPT(ALT) 19 U/L (5-65); TOTAL BILIRUBIN 2.3 MG/DL (0-1.2); TOTAL PROTEIN 7.2 G/DL (6.0-8.5)
[2016-09-30 08:38] LABS: INTERNATIONAL NORMAL RATI 1.5 UNITS (-)
[2016-09-30 08:44] LABS: PREALBUMIN 7.5 MG/DL (17.0-43.0)
[2016-09-30 09:10] LABS: SODIUM, URINE 21 MEQ/L
[2016-09-30 09:11] LABS: OSMOLALITY, URINE 512 MOSM/KG (50-1200)
[2016-09-30 10:45] LABS: HEMATOCRIT 26.3 % (40.0-51.0); HEMOGLOBIN 8.4 g/dL (13.6-17.8); MEAN CORPUS HGB CONC 31.9 g/dL (32.0-36.0); MEAN CORPUSCULAR HEMOGLOB 36.2 pg (26.0-34.0); MEAN CORPUSCULAR VOLUME 113.4 fL (80-100); MEAN PLATELET VOLUME 11.4 fL (9.2-13.0); RBC DISTRIBUTION WIDTH 15.7 % (12.0-16.0); RED CELL COUNT 2.32 10/6/uL (4.7-6.1); WHITE BLOOD CELLS 3.5 10/3/uL (4.5-10.5)
[2016-09-30 10:46] LABS: MANUAL DIFF YES %; PLATELET COUNT 47 10/3/uL (150-400)
[2016-09-30 11:06] LABS: BAND NEUTROPHILS 12 %; BASOPHILS 1 %; BASOPHILS ABSOLUTE (CALC) 0.04 10/3/uL (0.0-0.16); EOSINOPHILS 1 %; EOSINOPHILS ABSOLUTE (CALC) 0.04 10/3/uL (0.0-0.53); LYMPHOCYTES 12 %; LYMPHOCYTES ABSOLUTE (CALC) 0.42 10/3/uL (0.67-4.30); MONOCYTES 1 %; MONOCYTES ABSOLUTE (CALC) 0.04 10/3/uL (0.21-1.20); NEUTROPHILS ABSOLUTE (CALC) 2.98 10/3/uL (2.02-8.40); POLYCHROMASIA 1+ (2-5/OIF) (0-1/OIF); SEGMENTED NEUTROPHIL (0) 73 %; TOTAL NUCLEATED CELLS 100
[2016-09-30 11:07] LABS: TOXIC GRANULATION 1+
[2016-09-30 16:21] LABS: INSTRUMENT SERIAL # 35151; OPERATOR ID 13715; SAMPLE PLR; pH 7.33 (7.37-7.43)
[2016-09-30 17:32] LABS: MEAN CORPUS HGB CONC 31.1 g/dL (32.0-36.0); MEAN CORPUSCULAR HEMOGLOB 35.7 pg (26.0-34.0); MEAN CORPUSCULAR VOLUME 114.8 fL (80-100); MEAN PLATELET VOLUME 10.9 fL (9.2-13.0); PLATELET COUNT 50 10/3/uL (150-400); RBC DISTRIBUTION WIDTH 15.8 % (12.0-16.0); RED CELL COUNT 1.96 10/6/uL (4.7-6.1); WHITE BLOOD CELLS 2.2 10/3/uL (4.5-10.5)
[2016-09-30 17:33] LABS: HEMATOCRIT 22.5 % (40.0-51.0)
[2016-09-30 17:36] LABS: MANUAL DIFF YES %
[2016-09-30 18:03] LABS: BF ALBUMIN 1.8 G/DL; LDH BODY FLUID (NOT ORD) 354 U/L
[2016-09-30 18:20] LABS: BODY FLUID RBC (NOT ORD) < 10 /MM3
[2016-09-30 18:26] LABS: BD FL LYMPH (NOT ORD) 22 %; BD FL SOURCE (NOT ORD) PLEURAL; BF BASO (NOT OF) 0 %; BF LARGE MONONUCLEAR 33 %; BODY FLUID EOS (NOT ORD) 0 %; BODY FLUID SEG (NOT ORD) 45 %
[2016-09-30 18:28] LABS: BF TOTAL CELL CT (NOT ORD 40157 /MM3
[2016-09-30 18:45] LABS: BAND NEUTROPHILS 18 %; BASOPHILS 1 %; BASOPHILS ABSOLUTE (CALC) 0.02 10/3/uL (0.0-0.16); IMMATURE GRANS ABSOLUTE (CALC) 0.02 10/3/uL (0.0-0.11); LYMPHOCYTES 11 %; LYMPHOCYTES ABSOLUTE (CALC) 0.24 10/3/uL (0.67-4.30); METAMYELOCYTES 1 %; MONOCYTES 7 %; MONOCYTES ABSOLUTE (CALC) 0.15 10/3/uL (0.21-1.20); NEUTROPHILS ABSOLUTE (CALC) 1.76 10/3/uL (2.02-8.40); PLATELET ESTIMATE DEC (ADEQUATE); SEGMENTED NEUTROPHIL (0) 62 %; TOTAL NUCLEATED CELLS 100
[2016-09-30 22:36] LABS: HEMATOCRIT 22.9 % (40.0-51.0); HEMOGLOBIN 7.2 g/dL (13.6-17.8); MEAN CORPUS HGB CONC 31.4 g/dL (32.0-36.0); MEAN CORPUSCULAR HEMOGLOB 36.2 pg (26.0-34.0); MEAN CORPUSCULAR VOLUME 115.1 fL (80-100); MEAN PLATELET VOLUME 10.9 fL (9.2-13.0); PLATELET COUNT 53 10/3/uL (150-400); RBC DISTRIBUTION WIDTH 15.9 % (12.0-16.0); RED CELL COUNT 1.99 10/6/uL (4.7-6.1)
[2016-09-30 22:37] LABS: WHITE BLOOD CELLS 1.7 10/3/uL (4.5-10.5)
[2016-09-30 22:38] LABS: MANUAL DIFF YES %
[2016-09-30 23:04] LABS: ANISOCYTOSIS 1+ (5-10/OIF) (0-5/OIF); BAND NEUTROPHILS 20 %; BASOPHILS 1 %; BASOPHILS ABSOLUTE (CALC) 0.02 10/3/uL (0.0-0.16); EOSINOPHILS 2 %; EOSINOPHILS ABSOLUTE (CALC) 0.03 10/3/uL (0.0-0.53); LYMPHOCYTES 13 %; LYMPHOCYTES ABSOLUTE (CALC) 0.22 10/3/uL (0.67-4.30); MONOCYTES 6 %; NEUTROPHILS ABSOLUTE (CALC) 1.33 10/3/uL (2.02-8.40); PLATELET ESTIMATE DEC (ADEQUATE); SEGMENTED NEUTROPHIL (0) 58 %; TOTAL NUCLEATED CELLS 100
[2016-10-01 04:08] LABS: HEMATOCRIT 22.8 % (40.0-51.0); HEMOGLOBIN 7.3 g/dL (13.6-17.8); MEAN CORPUSCULAR HEMOGLOB 37.2 pg (26.0-34.0); MEAN CORPUSCULAR VOLUME 116.3 fL (80-100); MEAN PLATELET VOLUME 10.9 fL (9.2-13.0); RBC DISTRIBUTION WIDTH 15.9 % (12.0-16.0); RED CELL COUNT 1.96 10/6/uL (4.7-6.1)
[2016-10-01 04:10] LABS: PLATELET COUNT 48 10/3/uL (150-400); WHITE BLOOD CELLS 1.4 10/3/uL (4.5-10.5)
[2016-10-01 04:12] LABS: MANUAL DIFF YES %
[2016-10-01 04:15] LABS: INTERNATIONAL NORMAL RATI 1.7 UNITS (-); PROTIME (NOT ORD) 19.4 SEC (12.0-14.5)
[2016-10-01 04:33] LABS: A/G RATIO 0.7 (0.7-1.9); ALKALINE PHOSPHATASE 41 U/L (45-117); BUN (BLOOD UREA NITROGEN) 59 MG/DL (6-23); CALCIUM, SERUM 7.3 MG/DL (8.5-10.4); CHLORIDE, SERUM 112 MMOL/L (96-112); CO2 (CARBON DIOXIDE) 27 MMOL/L (24-34); CREATININE 1.73 MG/DL (0.70-1.30); GFR AFRICAN AMERICAN 53 ML/MIN (>=60); GFR NON AFRICAN AMERICAN 46 ML/MIN (>=60); GLOBULIN 4.1 G/DL (2.5-4.1); GLUCOSE, SERUM 196 MG/DL (60-99); POTASSIUM, SERUM 4.3 MMOL/L (3.5-5.3); SGOT(AST) 22 U/L (5-40); SGPT(ALT) 20 U/L (5-65); SODIUM, SERUM 148 MMOL/L (135-148); TOTAL BILIRUBIN 3.1 MG/DL (0-1.2); TOTAL PROTEIN 7.1 G/DL (6.0-8.5)
[2016-10-01 04:35] LABS: BAND NEUTROPHILS 18 %; BASOPHILS 2 %; BASOPHILS ABSOLUTE (CALC) 0.03 10/3/uL (0.0-0.16); LYMPHOCYTES 14 %; MONOCYTES 4 %; MONOCYTES ABSOLUTE (CALC) 0.06 10/3/uL (0.21-1.20); NEUTROPHILS ABSOLUTE (CALC) 1.12 10/3/uL (2.02-8.40); PLATELET ESTIMATE DEC (ADEQUATE); SEGMENTED NEUTROPHIL (0) 62 %; TOTAL NUCLEATED CELLS 100
[2016-10-01 04:36] LABS: TEARDROP SHAPED RBCS FEW (3-10/OIF)
[2016-10-01 08:03] LABS: VANCOMYCIN TROUGH 28.6 MCG/ML (10.0-20.0)
[2016-10-01 11:51] LABS: ASCORBIC ACID (UR NOT ORDER) NEG (NEG); BILIRUBIN, URINE NEGATIVE (NEG); KETONE, URINE NEGATIVE (NEG); LEUKOCYTE ESTERASE(NOT OR SMALL (NEG); WBC (NOT ORDERED) (RFLEX) 15 (0-5)
[2016-10-01 20:09] LABS: ALLENS TEST Pos; BE (BASE EXCESS) 0.9 MEQ/L (0 +/- 2.5); CARBOXYHEMOGLOBIN 0.5 % (0-3); HCO3 (ACTUAL BICARBONATE) 27.5 MEQ/L (23-27); HEMOBLOGIN CONTENT 7.5 G/DL (14-18); INSTRUMENT SERIAL # 11843; METHEMOGLOBIN 0.8 % (0-3); MODE CMV; O2 CONTENT 10.1 VOL% (18-24); OPERATOR ID 32193; PCO2 (CO2 TENSION) 56 MMHG (35-45); PO2 (O2 TENSION) 96 MMHG (79-93); SAMPLE Arterial; TIDAL VOLUME 500 ML; pH 7.31 (7.37-7.43)
[2016-10-02 01:35] LABS: A/G RATIO 0.8 (0.7-1.9); ALBUMIN 3.2 G/DL (3.5-5.0); ALKALINE PHOSPHATASE 47 U/L (45-117); CALCIUM, SERUM 7.5 MG/DL (8.5-10.4); CHLORIDE, SERUM 113 MMOL/L (96-112); CO2 (CARBON DIOXIDE) 29 MMOL/L (24-34); CREATININE 1.71 MG/DL (0.70-1.30); GFR AFRICAN AMERICAN 54 ML/MIN (>=60); GFR NON AFRICAN AMERICAN 46 ML/MIN (>=60); GLOBULIN 4.1 G/DL (2.5-4.1); GLUCOSE, SERUM 188 MG/DL (60-99); SGOT(AST) 17 U/L (5-40); SGPT(ALT) 22 U/L (5-65); SODIUM, SERUM 152 MMOL/L (135-148); TOTAL PROTEIN 7.3 G/DL (6.0-8.5)
[2016-10-02 01:36] LABS: BUN (BLOOD UREA NITROGEN) 54 MG/DL (6-23); TOTAL BILIRUBIN 2.4 MG/DL (0-1.2)
[2016-10-02 01:41] LABS: HEMOGLOBIN 6.4 g/dL (13.6-17.8); MEAN CORPUS HGB CONC 30.5 g/dL (32.0-36.0); MEAN CORPUSCULAR HEMOGLOB 35.8 pg (26.0-34.0); MEAN CORPUSCULAR VOLUME 117.3 fL (80-100); MEAN PLATELET VOLUME 11.1 fL (9.2-13.0); PLATELET COUNT 47 10/3/uL (150-400); RBC DISTRIBUTION WIDTH 16.1 % (12.0-16.0); RED CELL COUNT 1.79 10/6/uL (4.7-6.1); WHITE BLOOD CELLS 1.4 10/3/uL (4.5-10.5)
[2016-10-02 01:43] LABS: MANUAL DIFF YES %
[2016-10-02 01:45] LABS: INTERNATIONAL NORMAL RATI 1.6 UNITS (-); PARTIAL THROMBO TIME 30.6 SEC (22.5-37.2); PROTIME (NOT ORD) 18.6 SEC (12.0-14.5)
[2016-10-02 02:23] LABS: BAND NEUTROPHILS 6 %; BASOPHILS 2 %; BASOPHILS ABSOLUTE (CALC) 0.03 10/3/uL (0.0-0.16); EOSINOPHILS 1 %; EOSINOPHILS ABSOLUTE (CALC) 0.01 10/3/uL (0.0-0.53); LYMPHOCYTES 28 %; LYMPHOCYTES ABSOLUTE (CALC) 0.39 10/3/uL (0.67-4.30); NEUTROPHILS ABSOLUTE (CALC) 0.97 10/3/uL (2.02-8.40); SEGMENTED NEUTROPHIL (0) 63 %; TOTAL NUCLEATED CELLS 100
[2016-10-02 03:07] LABS: HEMATOCRIT 21.1 % (40.0-51.0)
[2016-10-02 03:09] LABS: HEMOGLOBIN 6.4 g/dL (13.6-17.8)
[2016-10-02 03:16] LABS: PROCALCITONIN 1.92 ng/mL (<0.5)
[2016-10-02 04:25] LABS: ALLENS TEST Pos; BE (BASE EXCESS) 2.8 MEQ/L (0 +/- 2.5); CARBOXYHEMOGLOBIN 0.5 % (0-3); INSTRUMENT SERIAL # 11843; METHEMOGLOBIN 0.7 % (0-3); MODE CMV; O2 CONTENT 10.4 VOL% (18-24); OPERATOR ID 32193; PCO2 (CO2 TENSION) 46 MMHG (35-45); PO2 (O2 TENSION) 76 MMHG (79-93); SAMPLE Arterial; TIDAL VOLUME 500 ML
[2016-10-02 06:01] LABS: VANCOMYCIN TROUGH 29.3 MCG/ML (10.0-20.0)
[2016-10-02 08:07] LABS: HEMOGLOBIN 7.5 g/dL (13.6-17.8); MEAN CORPUS HGB CONC 31.4 g/dL (32.0-36.0); MEAN CORPUSCULAR HEMOGLOB 34.7 pg (26.0-34.0); MEAN PLATELET VOLUME 11.1 fL (9.2-13.0); RBC DISTRIBUTION WIDTH 19.1 % (12.0-16.0)
[2016-10-02 08:17] LABS: HEMATOCRIT 23.9 % (40.0-51.0); MANUAL DIFF YES %; MEAN CORPUSCULAR VOLUME 110.6 fL (80-100); PLATELET COUNT 48 10/3/uL (150-400); RED CELL COUNT 2.16 10/6/uL (4.7-6.1); WHITE BLOOD CELLS 1.1 10/3/uL (4.5-10.5)
[2016-10-02 08:54] LABS: BASOPHILS 2 %; BASOPHILS ABSOLUTE (CALC) 0.02 10/3/uL (0.0-0.16); EOSINOPHILS 1 %; EOSINOPHILS ABSOLUTE (CALC) 0.01 10/3/uL (0.0-0.53); LYMPHOCYTES 24 %; LYMPHOCYTES ABSOLUTE (CALC) 0.26 10/3/uL (0.67-4.30); MONOCYTES 6 %; MONOCYTES ABSOLUTE (CALC) 0.07 10/3/uL (0.21-1.20); NEUTROPHILS ABSOLUTE (CALC) 0.74 10/3/uL (2.02-8.40); SEGMENTED NEUTROPHIL (0) 67 %; TOTAL NUCLEATED CELLS 100
[2016-10-02 09:06] LABS: ANISOCYTOSIS 1+ (5-10/OIF) (0-5/OIF)
[2016-10-03 03:39] LABS: BASOPHILS 0.4 %; BASOPHILS ABSOLUTE 0.01 10/3/uL (0.0-0.16); EOSINOPHILS 1.1 %; EOSINOPHILS ABSOLUTE 0.03 10/3/uL (0.0-0.53); HEMATOCRIT 24.2 % (40.0-51.0); HEMOGLOBIN 7.6 g/dL (13.6-17.8); LYMPHOCYTES 13.8 %; LYMPHOCYTES ABSOLUTE 0.37 10/3/uL (0.67-4.30); MEAN CORPUS HGB CONC 31.4 g/dL (32.0-36.0); MEAN CORPUSCULAR HEMOGLOB 35.2 pg (26.0-34.0); MEAN PLATELET VOLUME 10.9 fL (9.2-13.0); MONOCYTES 3.7 %; NEUTROPHILS ABSOLUTE 2.17 10/3/uL (2.02-8.40); RBC DISTRIBUTION WIDTH 18.8 % (12.0-16.0); RED CELL COUNT 2.16 10/6/uL (4.7-6.1)
[2016-10-03 03:41] LABS: MANUAL DIFF NO %; PLATELET COUNT 40 10/3/uL (150-400); WHITE BLOOD CELLS 2.7 10/3/uL (4.5-10.5)
[2016-10-03 04:06] LABS: A/G RATIO 0.6 (0.7-1.9); ALBUMIN 2.8 G/DL (3.5-5.0); ALKALINE PHOSPHATASE 47 U/L (45-117); BUN (BLOOD UREA NITROGEN) 53 MG/DL (6-23); CHLORIDE, SERUM 113 MMOL/L (96-112); CO2 (CARBON DIOXIDE) 30 MMOL/L (24-34); CREATININE 2.01 MG/DL (0.70-1.30); DIRECT BILIRUBIN 1.4 MG/DL (0.0-0.4); GFR AFRICAN AMERICAN 44 ML/MIN (>=60); GFR NON AFRICAN AMERICAN 38 ML/MIN (>=60); GLOBULIN 4.6 G/DL (2.5-4.1); GLUCOSE, SERUM 166 MG/DL (60-99); INDIRECT BILIRUBIN(NOT ORDER) 1.2 MG/DL (0.1-0.9); POTASSIUM, SERUM 3.5 MMOL/L (3.5-5.3); SGOT(AST) 17 U/L (5-40); SGPT(ALT) 19 U/L (5-65); SODIUM, SERUM 153 MMOL/L (135-148); TOTAL BILIRUBIN 2.6 MG/DL (0-1.2); TOTAL PROTEIN 7.4 G/DL (6.0-8.5)
[2016-10-03 04:07] LABS: PHOSPHORUS, SERUM 3.1 MG/DL (2.5-4.5)
[2016-10-03 04:13] LABS: INTERNATIONAL NORMAL RATI 1.7 UNITS (-); PARTIAL THROMBO TIME 34.3 SEC (22.5-37.2); PROTIME (NOT ORD) 20.1 SEC (12.0-14.5)
[2016-10-03 04:26] LABS: ANISOCYTOSIS 1+ (5-10/OIF) (0-5/OIF)
[2016-10-03 04:27] LABS: POLYCHROMASIA 1+ (2-5/OIF) (0-1/OIF); TOXIC GRANULATION 1+
[2016-10-03 04:28] LABS: ALLENS TEST Pos; BE (BASE EXCESS) 4.6 MEQ/L (0 +/- 2.5); CARBOXYHEMOGLOBIN 0.4 % (0-3); HCO3 (ACTUAL BICARBONATE) 29.8 MEQ/L (23-27); HEMOBLOGIN CONTENT 9.6 G/DL (14-18); INSTRUMENT SERIAL # 11843; METHEMOGLOBIN 0.6 % (0-3); MODE CMV; O2 CONTENT 12.1 VOL% (18-24); OPERATOR ID 32193; PCO2 (CO2 TENSION) 48 MMHG (35-45); PO2 (O2 TENSION) 66 MMHG (79-93); SAMPLE Arterial; TIDAL VOLUME 500 ML; pH 7.41 (7.37-7.43)
[2016-10-04 04:43] LABS: HEMATOCRIT 25.5 % (40.0-51.0); HEMOGLOBIN 8.1 g/dL (13.6-17.8); MEAN CORPUS HGB CONC 31.8 g/dL (32.0-36.0); MEAN CORPUSCULAR HEMOGLOB 36.3 pg (26.0-34.0); MEAN CORPUSCULAR VOLUME 114.3 fL (80-100); MEAN PLATELET VOLUME 10.9 fL (9.2-13.0); RED CELL COUNT 2.23 10/6/uL (4.7-6.1)
[2016-10-04 04:47] LABS: MANUAL DIFF YES %; PLATELET COUNT 35 10/3/uL (150-400)
[2016-10-04 04:50] LABS: INTERNATIONAL NORMAL RATI 1.8 UNITS (-)
[2016-10-04 05:05] LABS: ALBUMIN 2.5 G/DL (3.5-5.0); CALCIUM, SERUM 7.9 MG/DL (8.5-10.4); CHLORIDE, SERUM 115 MMOL/L (96-112); CO2 (CARBON DIOXIDE) 29 MMOL/L (24-34); CREATININE 2.09 MG/DL (0.70-1.30); GFR AFRICAN AMERICAN 42 ML/MIN (>=60); GFR NON AFRICAN AMERICAN 36 ML/MIN (>=60); GLUCOSE, SERUM 189 MG/DL (60-99); PHOSPHORUS, SERUM 2.5 MG/DL (2.5-4.5); POTASSIUM, SERUM 3.2 MMOL/L (3.5-5.3); SGOT(AST) 21 U/L (5-40); SGPT(ALT) 20 U/L (5-65); SODIUM, SERUM 155 MMOL/L (135-148); TOTAL PROTEIN 7.3 G/DL (6.0-8.5)
[2016-10-04 05:08] LABS: BAND NEUTROPHILS 23 %; EOSINOPHILS 6 %; EOSINOPHILS ABSOLUTE (CALC) 0.18 10/3/uL (0.0-0.53); LYMPHOCYTES 15 %; LYMPHOCYTES ABSOLUTE (CALC) 0.45 10/3/uL (0.67-4.30); MONOCYTES 1 %; MONOCYTES ABSOLUTE (CALC) 0.03 10/3/uL (0.21-1.20); NEUTROPHILS ABSOLUTE (CALC) 2.34 10/3/uL (2.02-8.40); SEGMENTED NEUTROPHIL (0) 55 %; TOTAL NUCLEATED CELLS 100
[2016-10-04 05:09] LABS: ANISOCYTOSIS 1+ (5-10/OIF) (0-5/OIF); POLYCHROMASIA 1+ (2-5/OIF) (0-1/OIF)
[2016-10-04 05:10] LABS: BUN (BLOOD UREA NITROGEN) 57 MG/DL (6-23); DIRECT BILIRUBIN 1.1 MG/DL (0.0-0.4); INDIRECT BILIRUBIN(NOT ORDER) 0.9 MG/DL (0.1-0.9)
[2016-10-04 05:11] LABS: ALKALINE PHOSPHATASE 66 U/L (45-117)
[2016-10-04 14:13] LABS: BE (BASE EXCESS) 7.1 MEQ/L (0 +/- 2.5); CARBOXYHEMOGLOBIN 0.7 % (0-3); INSTRUMENT SERIAL # 11843; METHEMOGLOBIN 0.6 % (0-3); MODE CMV; O2 CONTENT 11.6 VOL% (18-24); OPERATOR ID 30013; PCO2 (CO2 TENSION) 48 MMHG (35-45); PO2 (O2 TENSION) 70 MMHG (79-93); SAMPLE Arterial; TIDAL VOLUME 500 ML; pH 7.45 (7.37-7.43)
[2016-10-05 04:16] LABS: MEAN CORPUS HGB CONC 31.7 g/dL (32.0-36.0); MEAN CORPUSCULAR HEMOGLOB 36.2 pg (26.0-34.0); MEAN CORPUSCULAR VOLUME 114.2 fL (80-100); MEAN PLATELET VOLUME 11.1 fL (9.2-13.0); RBC DISTRIBUTION WIDTH 19.3 % (12.0-16.0)
[2016-10-05 04:18] LABS: HEMATOCRIT 32.2 % (40.0-51.0); HEMOGLOBIN 10.2 g/dL (13.6-17.8); MANUAL DIFF YES %; PLATELET COUNT 43 10/3/uL (150-400); RED CELL COUNT 2.82 10/6/uL (4.7-6.1); WHITE BLOOD CELLS 5.2 10/3/uL (4.5-10.5)
[2016-10-05 04:23] LABS: PROTIME (NOT ORD) 22.8 SEC (12.0-14.5)
[2016-10-05 04:34] LABS: ALBUMIN 2.3 G/DL (3.5-5.0); ALKALINE PHOSPHATASE 59 U/L (45-117); CALCIUM, SERUM 7.3 MG/DL (8.5-10.4); CHLORIDE, SERUM 114 MMOL/L (96-112); CO2 (CARBON DIOXIDE) 25 MMOL/L (24-34); CREATININE 1.78 MG/DL (0.70-1.30); DIRECT BILIRUBIN 1.1 MG/DL (0.0-0.4); GFR AFRICAN AMERICAN 51 ML/MIN (>=60); GFR NON AFRICAN AMERICAN 44 ML/MIN (>=60); GLUCOSE, SERUM 173 MG/DL (60-99); INDIRECT BILIRUBIN(NOT ORDER) 0.9 MG/DL (0.1-0.9); PHOSPHORUS, SERUM 2.3 MG/DL (2.5-4.5); SGOT(AST) 19 U/L (5-40); SGPT(ALT) 19 U/L (5-65); SODIUM, SERUM 150 MMOL/L (135-148)
[2016-10-05 04:42] LABS: BUN (BLOOD UREA NITROGEN) 44 MG/DL (6-23); POTASSIUM, SERUM 2.9 MMOL/L (3.5-5.3)
[2016-10-05 04:47] LABS: ANISOCYTOSIS 1+ (5-10/OIF) (0-5/OIF); BAND NEUTROPHILS 16 %; LYMPHOCYTES 7 %; LYMPHOCYTES ABSOLUTE (CALC) 0.36 10/3/uL (0.67-4.30); MONOCYTES 3 %; MONOCYTES ABSOLUTE (CALC) 0.16 10/3/uL (0.21-1.20); NEUTROPHILS ABSOLUTE (CALC) 4.68 10/3/uL (2.02-8.40); PLATELET ESTIMATE DEC (ADEQUATE); SEGMENTED NEUTROPHIL (0) 74 %; TOTAL NUCLEATED CELLS 100
[2016-10-05 09:48] LABS: CALCIUM, SERUM 7.5 MG/DL (8.5-10.4); CHLORIDE, SERUM 117 MMOL/L (96-112); CO2 (CARBON DIOXIDE) 28 MMOL/L (24-34); CREATININE 2.19 MG/DL (0.70-1.30); GFR AFRICAN AMERICAN 40 ML/MIN (>=60); GFR NON AFRICAN AMERICAN 34 ML/MIN (>=60); GLUCOSE, SERUM 203 MG/DL (60-99); SODIUM, SERUM 154 MMOL/L (135-148)
[2016-10-05 09:49] LABS: BUN (BLOOD UREA NITROGEN) 53 MG/DL (6-23); POTASSIUM, SERUM 3.8 MMOL/L (3.5-5.3)
[2016-10-05 15:55] LABS: ALBUMIN 2.3 G/DL (3.5-5.0); CALCIUM, SERUM 7.2 MG/DL (8.5-10.4); CHLORIDE, SERUM 118 MMOL/L (96-112); CO2 (CARBON DIOXIDE) 30 MMOL/L (24-34); CREATININE 2.24 MG/DL (0.70-1.30); GFR AFRICAN AMERICAN 39 ML/MIN (>=60); GFR NON AFRICAN AMERICAN 33 ML/MIN (>=60); GLUCOSE, SERUM 228 MG/DL (60-99); PHOSPHORUS, SERUM 2.9 MG/DL (2.5-4.5); POTASSIUM, SERUM 3.4 MMOL/L (3.5-5.3); SODIUM, SERUM 155 MMOL/L (135-148)
[2016-10-05 15:56] LABS: BUN (BLOOD UREA NITROGEN) 57 MG/DL (6-23)
[2016-10-06 04:15] LABS: BASOPHILS 1.3 %; BASOPHILS ABSOLUTE 0.04 10/3/uL (0.0-0.16); EOSINOPHILS 5.9 %; EOSINOPHILS ABSOLUTE 0.18 10/3/uL (0.0-0.53); HEMOGLOBIN 9.1 g/dL (13.6-17.8); IMMATURE GRANULOCYTES 2.3 %; IMMATURE GRANULOCYTES ABSOLUTE 0.07 10/3/uL (0.0-0.11); LYMPHOCYTES ABSOLUTE 0.55 10/3/uL (0.67-4.30); MEAN CORPUS HGB CONC 31.4 g/dL (32.0-36.0); MEAN CORPUSCULAR HEMOGLOB 35.4 pg (26.0-34.0); MEAN CORPUSCULAR VOLUME 112.8 fL (80-100); MEAN PLATELET VOLUME 10.3 fL (9.2-13.0); MONOCYTES 8.8 %; MONOCYTES ABSOLUTE 0.27 10/3/uL (0.21-1.20); NEUTROPHILS 63.7 %; NEUTROPHILS ABSOLUTE 1.95 10/3/uL (2.02-8.40); RBC DISTRIBUTION WIDTH 19.3 % (12.0-16.0); RED CELL COUNT 2.57 10/6/uL (4.7-6.1)
[2016-10-06 04:20] LABS: MANUAL DIFF NO %; PLATELET COUNT 38 10/3/uL (150-400); WHITE BLOOD CELLS 3.1 10/3/uL (4.5-10.5)
[2016-10-06 04:22] LABS: PROTIME (NOT ORD) 22.2 SEC (12.0-14.5)
[2016-10-06 04:26] LABS: ALBUMIN 2.4 G/DL (3.5-5.0); ALKALINE PHOSPHATASE 58 U/L (45-117); BUN (BLOOD UREA NITROGEN) 56 MG/DL (6-23); CALCIUM, SERUM 7.3 MG/DL (8.5-10.4); CHLORIDE, SERUM 118 MMOL/L (96-112); CO2 (CARBON DIOXIDE) 29 MMOL/L (24-34); CREATININE 2.32 MG/DL (0.70-1.30); GFR AFRICAN AMERICAN 37 ML/MIN (>=60); GFR NON AFRICAN AMERICAN 32 ML/MIN (>=60); GLUCOSE, SERUM 270 MG/DL (60-99); PHOSPHORUS, SERUM 2.5 MG/DL (2.5-4.5); POTASSIUM, SERUM 3.3 MMOL/L (3.5-5.3); SGOT(AST) 19 U/L (5-40); SGPT(ALT) 17 U/L (5-65); SODIUM, SERUM 154 MMOL/L (135-148); TOTAL PROTEIN 7.2 G/DL (6.0-8.5)
[2016-10-06 04:42] LABS: ANISOCYTOSIS 1+ (5-10/OIF) (0-5/OIF)
[2016-10-06 07:16] LABS: PROCALCITONIN 1.38 ng/mL (<0.5)
[2016-10-06 14:43] LABS: BASOPHILS 1.9 %; BASOPHILS ABSOLUTE 0.04 10/3/uL (0.0-0.16); EOSINOPHILS 6.2 %; EOSINOPHILS ABSOLUTE 0.13 10/3/uL (0.0-0.53); IMMATURE GRANULOCYTES 3.8 %; IMMATURE GRANULOCYTES ABSOLUTE 0.08 10/3/uL (0.0-0.11); LYMPHOCYTES 20.1 %; LYMPHOCYTES ABSOLUTE 0.42 10/3/uL (0.67-4.30); MEAN CORPUS HGB CONC 31.8 g/dL (32.0-36.0); MEAN CORPUSCULAR HEMOGLOB 35.8 pg (26.0-34.0); MEAN CORPUSCULAR VOLUME 112.4 fL (80-100); MEAN PLATELET VOLUME 10.1 fL (9.2-13.0); MONOCYTES ABSOLUTE 0.21 10/3/uL (0.21-1.20); NEUTROPHILS ABSOLUTE 1.21 10/3/uL (2.02-8.40); RBC DISTRIBUTION WIDTH 19.2 % (12.0-16.0)
[2016-10-06 14:44] LABS: HEMATOCRIT 21.7 % (40.0-51.0); HEMOGLOBIN 6.9 g/dL (13.6-17.8); PLATELET COUNT 40 10/3/uL (150-400); RED CELL COUNT 1.93 10/6/uL (4.7-6.1); WHITE BLOOD CELLS 2.1 10/3/uL (4.5-10.5)
[2016-10-06 14:47] LABS: MANUAL DIFF NO %
[2016-10-06 14:49] LABS: INTERNATIONAL NORMAL RATI 1.6 UNITS (-); PARTIAL THROMBO TIME 34.7 SEC (22.5-37.2); PROTIME (NOT ORD) 18.9 SEC (12.0-14.5)
[2016-10-06 15:13] LABS: ANISOCYTOSIS 1+ (5-10/OIF) (0-5/OIF); POLYCHROMASIA 1+ (2-5/OIF) (0-1/OIF)
[2016-10-06 15:35] LABS: MEAN CORPUS HGB CONC 31.2 g/dL (32.0-36.0); MEAN CORPUSCULAR HEMOGLOB 35.8 pg (26.0-34.0); MEAN CORPUSCULAR VOLUME 114.5 fL (80-100); MEAN PLATELET VOLUME 10.6 fL (9.2-13.0); RBC DISTRIBUTION WIDTH 19.3 % (12.0-16.0); RED CELL COUNT 1.79 10/6/uL (4.7-6.1)
[2016-10-06 15:40] LABS: HEMATOCRIT 20.5 % (40.0-51.0); HEMOGLOBIN 6.4 g/dL (13.6-17.8); PLATELET COUNT 37 10/3/uL (150-400); WHITE BLOOD CELLS 1.9 10/3/uL (4.5-10.5)
[2016-10-06 15:43] LABS: MANUAL DIFF YES %
[2016-10-06 15:44] LABS: INTERNATIONAL NORMAL RATI 1.6 UNITS (-); PARTIAL THROMBO TIME 34.8 SEC (22.5-37.2); PROTIME (NOT ORD) 19.3 SEC (12.0-14.5)
[2016-10-06 16:08] LABS: BAND NEUTROPHILS 10 %; BASOPHILS 3 %; BASOPHILS ABSOLUTE (CALC) 0.06 10/3/uL (0.0-0.16); EOSINOPHILS 8 %; EOSINOPHILS ABSOLUTE (CALC) 0.15 10/3/uL (0.0-0.53); IMMATURE GRANS ABSOLUTE (CALC) 0.06 10/3/uL (0.0-0.11); LYMPHOCYTES 10 %; LYMPHOCYTES ABSOLUTE (CALC) 0.19 10/3/uL (0.67-4.30); METAMYELOCYTES 3 %; MONOCYTES 10 %; MONOCYTES ABSOLUTE (CALC) 0.19 10/3/uL (0.21-1.20); NEUTROPHILS ABSOLUTE (CALC) 1.25 10/3/uL (2.02-8.40); SEGMENTED NEUTROPHIL (0) 56 %; TOTAL NUCLEATED CELLS 100
[2016-10-06 16:09] LABS: ANISOCYTOSIS 1+ (5-10/OIF) (0-5/OIF); POLYCHROMASIA 1+ (2-5/OIF) (0-1/OIF)
[2016-10-07 01:20] LABS: MEAN CORPUSCULAR HEMOGLOB 33.9 pg (26.0-34.0); MEAN PLATELET VOLUME 9.9 fL (9.2-13.0); RBC DISTRIBUTION WIDTH 22.3 % (12.0-16.0); WHITE BLOOD CELLS 2.6 10/3/uL (4.5-10.5)
[2016-10-07 01:23] LABS: HEMATOCRIT 29.1 % (40.0-51.0); HEMOGLOBIN 9.3 g/dL (13.6-17.8); MANUAL DIFF YES %; MEAN CORPUSCULAR VOLUME 106.2 fL (80-100); PLATELET COUNT 35 10/3/uL (150-400); RED CELL COUNT 2.74 10/6/uL (4.7-6.1)
[2016-10-07 01:39] LABS: ALKALINE PHOSPHATASE 53 U/L (45-117); BUN (BLOOD UREA NITROGEN) 54 MG/DL (6-23); CALCIUM, SERUM 7.8 MG/DL (8.5-10.4); CHLORIDE, SERUM 112 MMOL/L (96-112); CO2 (CARBON DIOXIDE) 29 MMOL/L (24-34); CREATININE 2.29 MG/DL (0.70-1.30); GFR AFRICAN AMERICAN 38 ML/MIN (>=60); GFR NON AFRICAN AMERICAN 33 ML/MIN (>=60); SGOT(AST) 21 U/L (5-40); SGPT(ALT) 17 U/L (5-65); SODIUM, SERUM 149 MMOL/L (135-148); TOTAL PROTEIN 7.5 G/DL (6.0-8.5)
[2016-10-07 01:42] LABS: A/G RATIO 0.6 (0.7-1.9); ALBUMIN 2.9 G/DL (3.5-5.0); GLOBULIN 4.6 G/DL (2.5-4.1); GLUCOSE, SERUM 177 MG/DL (60-99); POTASSIUM, SERUM 3.4 MMOL/L (3.5-5.3); TOTAL BILIRUBIN 2.5 MG/DL (0-1.2)
[2016-10-07 01:49] LABS: BAND NEUTROPHILS 3 %; BASOPHILS 1 %; BASOPHILS ABSOLUTE (CALC) 0.03 10/3/uL (0.0-0.16); EOSINOPHILS 3 %; EOSINOPHILS ABSOLUTE (CALC) 0.08 10/3/uL (0.0-0.53); IMMATURE GRANS ABSOLUTE (CALC) 0.18 10/3/uL (0.0-0.11); LYMPHOCYTES 19 %; LYMPHOCYTES ABSOLUTE (CALC) 0.49 10/3/uL (0.67-4.30); METAMYELOCYTES 5 %; MONOCYTES 5 %; MONOCYTES ABSOLUTE (CALC) 0.13 10/3/uL (0.21-1.20); MYELOCYTES 2 %; NEUTROPHILS ABSOLUTE (CALC) 1.69 10/3/uL (2.02-8.40); SEGMENTED NEUTROPHIL (0) 62 %; TOTAL NUCLEATED CELLS 100
[2016-10-07 01:50] LABS: ANISOCYTOSIS 1+ (5-10/OIF) (0-5/OIF); MACROCYTES 1+ (5-10/OIF) (0-5/OIF)
[2016-10-07 05:49] LABS: INSTRUMENT SERIAL # 11843; pH 7.44 (7.37-7.43)
[2016-10-07 05:50] LABS: ALLENS TEST Pos; BE (BASE EXCESS) 5.4 MEQ/L (0 +/- 2.5); CARBOXYHEMOGLOBIN 0.6 % (0-3); DEVICE HFNC; HCO3 (ACTUAL BICARBONATE) 30.1 MEQ/L (23-27); HEMOBLOGIN CONTENT 9.7 G/DL (14-18); METHEMOGLOBIN 0.7 % (0-3); O2 CONTENT 12.1 VOL% (18-24); PCO2 (CO2 TENSION) 45 MMHG (35-45); PO2 (O2 TENSION) 59 MMHG (79-93); SAMPLE Arterial
[2016-10-07 07:59] LABS: INTERNATIONAL NORMAL RATI 1.6 UNITS (-); PROTIME (NOT ORD) 18.6 SEC (12.0-14.5)
[2016-10-07 08:07] LABS: HEMOGLOBIN 8.2 g/dL (13.6-17.8); MEAN CORPUS HGB CONC 31.4 g/dL (32.0-36.0); MEAN CORPUSCULAR HEMOGLOB 33.5 pg (26.0-34.0); MEAN CORPUSCULAR VOLUME 106.5 fL (80-100); MEAN PLATELET VOLUME 10.8 fL (9.2-13.0); RED CELL COUNT 2.45 10/6/uL (4.7-6.1); WHITE BLOOD CELLS 2.7 10/3/uL (4.5-10.5)
[2016-10-07 08:09] LABS: HEMATOCRIT 26.1 % (40.0-51.0); PLATELET COUNT 45 10/3/uL (150-400)
[2016-10-07 08:10] LABS: MANUAL DIFF YES %
[2016-10-07 08:27] LABS: BAND NEUTROPHILS 7 %; EOSINOPHILS 4 %; EOSINOPHILS ABSOLUTE (CALC) 0.11 10/3/uL (0.0-0.53); IMMATURE GRANS ABSOLUTE (CALC) 0.16 10/3/uL (0.0-0.11); LYMPHOCYTES 13 %; LYMPHOCYTES ABSOLUTE (CALC) 0.35 10/3/uL (0.67-4.30); METAMYELOCYTES 4 %; MONOCYTES 6 %; MONOCYTES ABSOLUTE (CALC) 0.16 10/3/uL (0.21-1.20); MYELOCYTES 2 %; NEUTROPHILS ABSOLUTE (CALC) 1.92 10/3/uL (2.02-8.40); SEGMENTED NEUTROPHIL (0) 64 %; TOTAL NUCLEATED CELLS 100
[2016-10-07 08:28] LABS: HYPOCHROMIA 1+ (3-10/OIF) (0-2/OIF); MACROCYTES 1+ (5-10/OIF) (0-5/OIF); POLYCHROMASIA 1+ (2-5/OIF) (0-1/OIF)
[2016-10-07 12:26] LABS: BD FL LYMPH (NOT ORD) 31 %; BD FL SOURCE (NOT ORD) R PARACNETESIS FLUID; BF BASO (NOT OF) 0 %; BF LARGE MONONUCLEAR 57 %; BODY FLUID EOS (NOT ORD) 0 %; BODY FLUID SEG (NOT ORD) 12 %
[2016-10-07 12:27] LABS: BF ALBUMIN 0.9 G/DL; PROTEIN BODY FLUID 2.2 G/DL
[2016-10-07 12:38] LABS: HEMATOCRIT 24.9 % (40.0-51.0); HEMOGLOBIN 7.9 g/dL (13.6-17.8); MEAN CORPUS HGB CONC 31.7 g/dL (32.0-36.0); MEAN CORPUSCULAR HEMOGLOB 33.9 pg (26.0-34.0); MEAN CORPUSCULAR VOLUME 106.9 fL (80-100); MEAN PLATELET VOLUME 10.5 fL (9.2-13.0); PLATELET COUNT 51 10/3/uL (150-400); RED CELL COUNT 2.33 10/6/uL (4.7-6.1)
[2016-10-07 12:39] LABS: MANUAL DIFF YES %; WHITE BLOOD CELLS 2.1 10/3/uL (4.5-10.5)
[2016-10-07 12:47] LABS: BF TOTAL CELL CT (NOT ORD 254 /MM3; BODY FLUID RBC (NOT ORD) 4012 /MM3
[2016-10-07 12:47] LABS: INTERNATIONAL NORMAL RATI 1.7 UNITS (-); PARTIAL THROMBO TIME 34.3 SEC (22.5-37.2); PROTIME (NOT ORD) 19.9 SEC (12.0-14.5)
[2016-10-07 13:22] LABS: BAND NEUTROPHILS 10 %; EOSINOPHILS 4 %; EOSINOPHILS ABSOLUTE (CALC) 0.08 10/3/uL (0.0-0.53); HYPOCHROMIA 1+ (3-10/OIF) (0-2/OIF); IMMATURE GRANS ABSOLUTE (CALC) 0.13 10/3/uL (0.0-0.11); LYMPHOCYTES 16 %; LYMPHOCYTES ABSOLUTE (CALC) 0.34 10/3/uL (0.67-4.30); METAMYELOCYTES 5 %; MONOCYTES 7 %; MONOCYTES ABSOLUTE (CALC) 0.15 10/3/uL (0.21-1.20); MYELOCYTES 1 %; NEUTROPHILS ABSOLUTE (CALC) 1.41 10/3/uL (2.02-8.40); PLATELET ESTIMATE DEC (ADEQUATE); SEGMENTED NEUTROPHIL (0) 57 %; TOTAL NUCLEATED CELLS 100
[2016-10-07 18:27] LABS: HEMATOCRIT 24.9 % (40.0-51.0); HEMOGLOBIN 7.9 g/dL (13.6-17.8)
[2016-10-08 01:11] LABS: HEMOGLOBIN 10.5 g/dL (13.6-17.8)
[2016-10-08 01:12] LABS: HEMATOCRIT 33.9 % (40.0-51.0)
[2016-10-08 04:32] LABS: MEAN CORPUS HGB CONC 31.5 g/dL (32.0-36.0); MEAN CORPUSCULAR HEMOGLOB 33.6 pg (26.0-34.0); MEAN CORPUSCULAR VOLUME 106.8 fL (80-100); MEAN PLATELET VOLUME 10.2 fL (9.2-13.0); RBC DISTRIBUTION WIDTH 21.5 % (12.0-16.0); RED CELL COUNT 2.35 10/6/uL (4.7-6.1); WHITE BLOOD CELLS 2.5 10/3/uL (4.5-10.5)
[2016-10-08 04:36] LABS: INTERNATIONAL NORMAL RATI 1.8 UNITS (-)
[2016-10-08 04:47] LABS: HEMATOCRIT 25.1 % (40.0-51.0); HEMOGLOBIN 7.9 g/dL (13.6-17.8); PLATELET COUNT 37 10/3/uL (150-400)
[2016-10-08 04:48] LABS: MANUAL DIFF YES %
[2016-10-08 05:09] LABS: A/G RATIO 0.9 (0.7-1.9); ALKALINE PHOSPHATASE 48 U/L (45-117); BUN (BLOOD UREA NITROGEN) 56 MG/DL (6-23); CALCIUM, SERUM 8.1 MG/DL (8.5-10.4); CHLORIDE, SERUM 114 MMOL/L (96-112); CO2 (CARBON DIOXIDE) 31 MMOL/L (24-34); CREATININE 2.51 MG/DL (0.70-1.30); GFR AFRICAN AMERICAN 34 ML/MIN (>=60); GFR NON AFRICAN AMERICAN 29 ML/MIN (>=60); GLOBULIN 4.1 G/DL (2.5-4.1); POTASSIUM, SERUM 3.4 MMOL/L (3.5-5.3); SGOT(AST) 23 U/L (5-40); SGPT(ALT) 20 U/L (5-65); SODIUM, SERUM 151 MMOL/L (135-148); TOTAL BILIRUBIN 2.6 MG/DL (0-1.2); TOTAL PROTEIN 7.7 G/DL (6.0-8.5)
[2016-10-08 05:10] LABS: ALBUMIN 3.6 G/DL (3.5-5.0); GLUCOSE, SERUM 132 MG/DL (60-99)
[2016-10-08 05:36] LABS: MACROCYTES 1+ (5-10/OIF) (0-5/OIF); POLYCHROMASIA 1+ (2-5/OIF) (0-1/OIF); TOXIC GRANULATION SLT
[2016-10-08 17:47] LABS: HEMATOCRIT 27.6 % (40.0-51.0); HEMOGLOBIN 8.5 g/dL (13.6-17.8)
[2016-10-08 18:40] LABS: CALCIUM, SERUM 8.3 MG/DL (8.5-10.4); CHLORIDE, SERUM 116 MMOL/L (96-112); CO2 (CARBON DIOXIDE) 31 MMOL/L (24-34); CREATININE 2.66 MG/DL (0.70-1.30); GFR AFRICAN AMERICAN 31 ML/MIN (>=60); GFR NON AFRICAN AMERICAN 27 ML/MIN (>=60); POTASSIUM, SERUM 3.4 MMOL/L (3.5-5.3); SODIUM, SERUM 153 MMOL/L (135-148)
[2016-10-08 18:41] LABS: BUN (BLOOD UREA NITROGEN) 62 MG/DL (6-23); GLUCOSE, SERUM 196 MG/DL (60-99)
[2016-10-09 00:15] LABS: HEMATOCRIT 27.1 % (40.0-51.0); HEMOGLOBIN 8.4 g/dL (13.6-17.8); MANUAL DIFF YES %; MEAN CORPUSCULAR HEMOGLOB 33.7 pg (26.0-34.0); MEAN CORPUSCULAR VOLUME 108.8 fL (80-100); MEAN PLATELET VOLUME 10.5 fL (9.2-13.0); PLATELET COUNT 34 10/3/uL (150-400); RBC DISTRIBUTION WIDTH 21.5 % (12.0-16.0); RED CELL COUNT 2.49 10/6/uL (4.7-6.1)
[2016-10-09 00:38] LABS: POTASSIUM, SERUM 3.6 MMOL/L (3.5-5.3)
[2016-10-09 00:50] LABS: BAND NEUTROPHILS 13 %; EOSINOPHILS 1 %; EOSINOPHILS ABSOLUTE (CALC) 0.03 10/3/uL (0.0-0.53); IMMATURE GRANS ABSOLUTE (CALC) 0.09 10/3/uL (0.0-0.11); LYMPHOCYTES 18 %; LYMPHOCYTES ABSOLUTE (CALC) 0.54 10/3/uL (0.67-4.30); MONOCYTES 1 %; MONOCYTES ABSOLUTE (CALC) 0.03 10/3/uL (0.21-1.20); MYELOCYTES 3 %; NEUTROPHILS ABSOLUTE (CALC) 2.31 10/3/uL (2.02-8.40); PLATELET ESTIMATE DEC (ADEQUATE); SEGMENTED NEUTROPHIL (0) 64 %; TOTAL NUCLEATED CELLS 100
[2016-10-09 04:14] LABS: HEMATOCRIT 29.6 % (40.0-51.0); HEMOGLOBIN 9.1 g/dL (13.6-17.8); MEAN CORPUS HGB CONC 30.7 g/dL (32.0-36.0); MEAN CORPUSCULAR HEMOGLOB 34.2 pg (26.0-34.0); MEAN CORPUSCULAR VOLUME 111.3 fL (80-100); RBC DISTRIBUTION WIDTH 21.4 % (12.0-16.0); RED CELL COUNT 2.66 10/6/uL (4.7-6.1); WHITE BLOOD CELLS 3.1 10/3/uL (4.5-10.5)
[2016-10-09 04:23] LABS: MANUAL DIFF YES %; PLATELET COUNT 38 10/3/uL (150-400)
[2016-10-09 04:46] LABS: ALBUMIN 3.4 G/DL (3.5-5.0); BUN (BLOOD UREA NITROGEN) 63 MG/DL (6-23); CALCIUM, SERUM 8.7 MG/DL (8.5-10.4); CHLORIDE, SERUM 114 MMOL/L (96-112); CO2 (CARBON DIOXIDE) 31 MMOL/L (24-34); CREATININE 2.67 MG/DL (0.70-1.30); GFR AFRICAN AMERICAN 31 ML/MIN (>=60); GFR NON AFRICAN AMERICAN 27 ML/MIN (>=60); POTASSIUM, SERUM 3.8 MMOL/L (3.5-5.3); SGOT(AST) 20 U/L (5-40); SGPT(ALT) 20 U/L (5-65); SODIUM, SERUM 154 MMOL/L (135-148); TOTAL BILIRUBIN 2.5 MG/DL (0-1.2); TOTAL PROTEIN 8.4 G/DL (6.0-8.5); VANCOMYCIN TROUGH 19.5 MCG/ML (10.0-20.0)
[2016-10-09 04:51] LABS: A/G RATIO 0.7 (0.7-1.9); ALKALINE PHOSPHATASE 62 U/L (45-117); GLUCOSE, SERUM 191 MG/DL (60-99)
[2016-10-09 05:27] LABS: ANISOCYTOSIS 1+ (5-10/OIF) (0-5/OIF); BAND NEUTROPHILS 9 %; EOSINOPHILS 2 %; EOSINOPHILS ABSOLUTE (CALC) 0.06 10/3/uL (0.0-0.53); IMMATURE GRANS ABSOLUTE (CALC) 0.16 10/3/uL (0.0-0.11); LYMPHOCYTES 14 %; LYMPHOCYTES ABSOLUTE (CALC) 0.43 10/3/uL (0.67-4.30); METAMYELOCYTES 3 %; MONOCYTES 4 %; MONOCYTES ABSOLUTE (CALC) 0.12 10/3/uL (0.21-1.20); MYELOCYTES 2 %; NEUTROPHILS ABSOLUTE (CALC) 2.33 10/3/uL (2.02-8.40); NUCLEATED RED BLOOD CELLS 1 /100WBC (0); SEGMENTED NEUTROPHIL (0) 66 %; TOTAL NUCLEATED CELLS 100; TOXIC GRANULATION SLT
[2016-10-09 05:28] LABS: POLYCHROMASIA 1+ (2-5/OIF) (0-1/OIF)
[2016-10-09 12:45] LABS: BE (BASE EXCESS) 4.7 MEQ/L (0 +/- 2.5); CARBOXYHEMOGLOBIN 0.4 % (0-3); DEVICE NC; HCO3 (ACTUAL BICARBONATE) 29.7 MEQ/L (23-27); HEMOBLOGIN CONTENT 10.2 G/DL (14-18); INSTRUMENT SERIAL # 11843; METHEMOGLOBIN 0.5 % (0-3); O2 CONTENT 13.1 VOL% (18-24); OPERATOR ID 35188; PCO2 (CO2 TENSION) 46 MMHG (35-45); PO2 (O2 TENSION) 66 MMHG (79-93); SAMPLE Arterial; pH 7.43 (7.37-7.43)
[2016-10-09 12:46] LABS: ALLENS TEST Pos
[2016-10-10 01:25] LABS: A/G RATIO 0.7 (0.7-1.9); ALBUMIN 3.5 G/DL (3.5-5.0); CALCIUM, SERUM 9.2 MG/DL (8.5-10.4); CHLORIDE, SERUM 111 MMOL/L (96-112); CO2 (CARBON DIOXIDE) 33 MMOL/L (24-34); CREATININE 2.73 MG/DL (0.70-1.30); GFR AFRICAN AMERICAN 30 ML/MIN (>=60); GFR NON AFRICAN AMERICAN 26 ML/MIN (>=60); GLOBULIN 5.3 G/DL (2.5-4.1); GLUCOSE, SERUM 195 MG/DL (60-99); POTASSIUM, SERUM 3.5 MMOL/L (3.5-5.3); SGOT(AST) 30 U/L (5-40); SGPT(ALT) 23 U/L (5-65); SODIUM, SERUM 154 MMOL/L (135-148); TOTAL BILIRUBIN 2.3 MG/DL (0-1.2); TOTAL PROTEIN 8.8 G/DL (6.0-8.5)
[2016-10-10 01:26] LABS: ALKALINE PHOSPHATASE 86 U/L (45-117); BUN (BLOOD UREA NITROGEN) 67 MG/DL (6-23)
[2016-10-10 01:49] LABS: BASOPHILS 0.6 %; BASOPHILS ABSOLUTE 0.02 10/3/uL (0.0-0.16); EOSINOPHILS 4.3 %; EOSINOPHILS ABSOLUTE 0.15 10/3/uL (0.0-0.53); HEMOGLOBIN 9.1 g/dL (13.6-17.8); IMMATURE GRANULOCYTES ABSOLUTE 0.07 10/3/uL (0.0-0.11); LYMPHOCYTES 12.8 %; LYMPHOCYTES ABSOLUTE 0.45 10/3/uL (0.67-4.30); MANUAL DIFF NO %; MEAN CORPUS HGB CONC 31.4 g/dL (32.0-36.0); MEAN CORPUSCULAR HEMOGLOB 34.6 pg (26.0-34.0); MEAN CORPUSCULAR VOLUME 110.3 fL (80-100); MEAN PLATELET VOLUME 10.7 fL (9.2-13.0); MONOCYTES 3.7 %; MONOCYTES ABSOLUTE 0.13 10/3/uL (0.21-1.20); NEUTROPHILS 76.6 %; NEUTROPHILS ABSOLUTE 2.69 10/3/uL (2.02-8.40); PLATELET COUNT 37 10/3/uL (150-400); RBC DISTRIBUTION WIDTH 21.4 % (12.0-16.0); RED CELL COUNT 2.63 10/6/uL (4.7-6.1); WHITE BLOOD CELLS 3.5 10/3/uL (4.5-10.5)
[2016-10-10 02:00] LABS: INTERNATIONAL NORMAL RATI 1.8 UNITS (-); PROTIME (NOT ORD) 20.5 SEC (12.0-14.5)
[2016-10-10 02:06] LABS: ANISOCYTOSIS 1+ (5-10/OIF) (0-5/OIF); POLYCHROMASIA 1+ (2-5/OIF) (0-1/OIF)
[2016-10-10 17:24] LABS: CALCIUM, SERUM 9.1 MG/DL (8.5-10.4); CHLORIDE, SERUM 112 MMOL/L (96-112); CO2 (CARBON DIOXIDE) 29 MMOL/L (24-34); GFR AFRICAN AMERICAN 28 ML/MIN (>=60); GFR NON AFRICAN AMERICAN 24 ML/MIN (>=60); GLUCOSE, SERUM 218 MG/DL (60-99); POTASSIUM, SERUM 3.7 MMOL/L (3.5-5.3); SODIUM, SERUM 152 MMOL/L (135-148)
[2016-10-10 17:25] LABS: BUN (BLOOD UREA NITROGEN) 72 MG/DL (6-23)
[2016-10-11 03:37] LABS: BASOPHILS 0.2 %; BASOPHILS ABSOLUTE 0.01 10/3/uL (0.0-0.16); EOSINOPHILS 1.9 %; EOSINOPHILS ABSOLUTE 0.09 10/3/uL (0.0-0.53); HEMATOCRIT 28.3 % (40.0-51.0); HEMOGLOBIN 8.9 g/dL (13.6-17.8); IMMATURE GRANULOCYTES 0.9 %; IMMATURE GRANULOCYTES ABSOLUTE 0.04 10/3/uL (0.0-0.11); LYMPHOCYTES 11.2 %; LYMPHOCYTES ABSOLUTE 0.52 10/3/uL (0.67-4.30); MANUAL DIFF NO %; MEAN CORPUS HGB CONC 31.4 g/dL (32.0-36.0); MEAN CORPUSCULAR HEMOGLOB 34.5 pg (26.0-34.0); MEAN CORPUSCULAR VOLUME 109.7 fL (80-100); MEAN PLATELET VOLUME 11.5 fL (9.2-13.0); MONOCYTES 4.7 %; MONOCYTES ABSOLUTE 0.22 10/3/uL (0.21-1.20); NEUTROPHILS 81.1 %; NEUTROPHILS ABSOLUTE 3.76 10/3/uL (2.02-8.40); PLATELET COUNT 36 10/3/uL (150-400); RBC DISTRIBUTION WIDTH 21.4 % (12.0-16.0); RED CELL COUNT 2.58 10/6/uL (4.7-6.1); WHITE BLOOD CELLS 4.6 10/3/uL (4.5-10.5)
[2016-10-11 03:47] LABS: ALBUMIN 3.2 G/DL (3.5-5.0); BUN (BLOOD UREA NITROGEN) 75 MG/DL (6-23); CALCIUM, SERUM 8.9 MG/DL (8.5-10.4); CHLORIDE, SERUM 110 MMOL/L (96-112); CO2 (CARBON DIOXIDE) 32 MMOL/L (24-34); CREATININE 2.82 MG/DL (0.70-1.30); GFR AFRICAN AMERICAN 29 ML/MIN (>=60); GFR NON AFRICAN AMERICAN 25 ML/MIN (>=60); GLUCOSE, SERUM 198 MG/DL (60-99); PHOSPHORUS, SERUM 2.9 MG/DL (2.5-4.5); POTASSIUM, SERUM 3.3 MMOL/L (3.5-5.3); SODIUM, SERUM 152 MMOL/L (135-148)
[2016-10-11 03:54] LABS: ANISOCYTOSIS 1+ (5-10/OIF) (0-5/OIF); POLYCHROMASIA 1+ (2-5/OIF) (0-1/OIF)
[2016-10-12 06:01] LABS: HEMATOCRIT 27.7 % (40.0-51.0); HEMOGLOBIN 8.9 g/dL (13.6-17.8); MEAN CORPUS HGB CONC 32.1 g/dL (32.0-36.0); MEAN CORPUSCULAR HEMOGLOB 34.5 pg (26.0-34.0); MEAN CORPUSCULAR VOLUME 107.4 fL (80-100); MEAN PLATELET VOLUME 11.6 fL (9.2-13.0); RED CELL COUNT 2.58 10/6/uL (4.7-6.1)
[2016-10-12 06:02] LABS: PLATELET COUNT 42 10/3/uL (150-400)
[2016-10-12 06:03] LABS: MANUAL DIFF YES %
[2016-10-12 07:04] LABS: BAND NEUTROPHILS 25 %; IMMATURE GRANS ABSOLUTE (CALC) 0.18 10/3/uL (0.0-0.11); LYMPHOCYTES 4 %; LYMPHOCYTES ABSOLUTE (CALC) 0.24 10/3/uL (0.67-4.30); METAMYELOCYTES 2 %; MONOCYTES 5 %; MYELOCYTES 1 %; NEUTROPHILS ABSOLUTE (CALC) 5.28 10/3/uL (2.02-8.40); SEGMENTED NEUTROPHIL (0) 63 %; TOTAL NUCLEATED CELLS 100
[2016-10-12 07:37] LABS: ALBUMIN 2.8 G/DL (3.5-5.0); BUN (BLOOD UREA NITROGEN) 73 MG/DL (6-23); CALCIUM, SERUM 8.5 MG/DL (8.5-10.4); CO2 (CARBON DIOXIDE) 29 MMOL/L (24-34); CREATININE 2.96 MG/DL (0.70-1.30); GFR AFRICAN AMERICAN 28 ML/MIN (>=60); GFR NON AFRICAN AMERICAN 24 ML/MIN (>=60); GLUCOSE, SERUM 224 MG/DL (60-99); POTASSIUM, SERUM 3.4 MMOL/L (3.5-5.3)
[2016-10-12 07:39] LABS: CHLORIDE, SERUM 100 MMOL/L (96-112); PHOSPHORUS, SERUM 4.2 MG/DL (2.5-4.5); SODIUM, SERUM 140 MMOL/L (135-148)
[2016-10-12 14:02] LABS: GLYCOHEMOGLOBIN (HbA1c) 7.3 % (4.7-6.1)
[2016-10-13 04:18] LABS: ALBUMIN 2.9 G/DL (3.5-5.0); CALCIUM, SERUM 8.2 MG/DL (8.5-10.4); CHLORIDE, SERUM 99 MMOL/L (96-112); CO2 (CARBON DIOXIDE) 29 MMOL/L (24-34); CREATININE 2.91 MG/DL (0.70-1.30); GFR AFRICAN AMERICAN 28 ML/MIN (>=60); GFR NON AFRICAN AMERICAN 24 ML/MIN (>=60); PHOSPHORUS, SERUM 4.6 MG/DL (2.5-4.5); POTASSIUM, SERUM 3.4 MMOL/L (3.5-5.3); SODIUM, SERUM 139 MMOL/L (135-148)
[2016-10-13 04:19] LABS: BUN (BLOOD UREA NITROGEN) 85 MG/DL (6-23); GLUCOSE, SERUM 165 MG/DL (60-99)
[2016-10-14 06:13] LABS: HEMATOCRIT 26.4 % (40.0-51.0); HEMOGLOBIN 8.6 g/dL (13.6-17.8); MEAN CORPUS HGB CONC 32.6 g/dL (32.0-36.0); MEAN CORPUSCULAR VOLUME 104.3 fL (80-100); MEAN PLATELET VOLUME 11.3 fL (9.2-13.0); RBC DISTRIBUTION WIDTH 20.4 % (12.0-16.0); RED CELL COUNT 2.53 10/6/uL (4.7-6.1); WHITE BLOOD CELLS 5.8 10/3/uL (4.5-10.5)
[2016-10-14 06:15] LABS: MANUAL DIFF YES %; PLATELET COUNT 38 10/3/uL (150-400)
[2016-10-14 06:18] LABS: BUN (BLOOD UREA NITROGEN) 84 MG/DL (6-23); CALCIUM, SERUM 8.4 MG/DL (8.5-10.4); CHLORIDE, SERUM 96 MMOL/L (96-112); CO2 (CARBON DIOXIDE) 26 MMOL/L (24-34); CREATININE 2.76 MG/DL (0.70-1.30); GFR AFRICAN AMERICAN 30 ML/MIN (>=60); GFR NON AFRICAN AMERICAN 26 ML/MIN (>=60); GLUCOSE, SERUM 182 MG/DL (60-99); POTASSIUM, SERUM 3.7 MMOL/L (3.5-5.3); SODIUM, SERUM 134 MMOL/L (135-148)
[2016-10-14 06:40] LABS: ANISOCYTOSIS 1+ (5-10/OIF) (0-5/OIF); BAND NEUTROPHILS 6 %; LYMPHOCYTES 15 %; LYMPHOCYTES ABSOLUTE (CALC) 0.87 10/3/uL (0.67-4.30); MACROCYTES 1+ (5-10/OIF) (0-5/OIF); MONOCYTES 2 %; MONOCYTES ABSOLUTE (CALC) 0.12 10/3/uL (0.21-1.20); NEUTROPHILS ABSOLUTE (CALC) 4.81 10/3/uL (2.02-8.40); PLATELET ESTIMATE DEC (ADEQUATE); SEGMENTED NEUTROPHIL (0) 77 %; TOTAL NUCLEATED CELLS 100
[2016-11-30] MEDS ORDERED: DEMA20 PO (11:24)
[2016-11-30] MEDS ORDERED: KDUR20 PO (11:25)
[2016-11-30] MEDS ORDERED: XIFAXAN550 MG PO (11:27)
[2017-02-17] MEDS ORDERED: T PO (17:34)
[2017-02-17] MEDS ORDERED: DUONEB INH (17:42)
[2017-02-17] MEDS ORDERED: X5 PO (17:43)
[2017-02-17] MEDS ORDERED: ALBUTEROL0.083 % INH (17:43)
[2017-02-17] MEDS ORDERED: OXYCOD PO (17:44)
[2017-02-17] MEDS ORDERED: NORV10 PO (17:44)
[2017-02-17] MEDS ORDERED: PRISTIQ100 MG PO (17:44)
[2017-02-17] MEDS ORDERED: I20 PO (17:45)
[2017-02-17] MEDS ORDERED: XIFAXAN550 MG PO (17:45)
[2017-02-17] MEDS ORDERED: NEXIUM40 PO (17:45)
[2017-02-17] MEDS ORDERED: SPIRO50 PO (17:46)
[2017-02-17] MEDS ORDERED: TOPAMAX50 MG PO (17:46)
[2017-02-17] MEDS ORDERED: SPIR100 PO (17:46)
[2017-02-17] MEDS ORDERED: DEMA20 PO (17:47)
[2017-02-17] MEDS ORDERED: ENULOSE PO (17:47)
[2017-02-17] MEDS ORDERED: SYMBICORT 160/41 INH INH (17:48)
[2017-02-17] MEDS ORDERED: TUMS PO (17:52)
== END 2016-10-15 02:00 | disposition short-term general hospital (02) | DRG 870 ==
LOC: CVICU 19:18 → 5NO 10-11 14:20
PROVIDERS: Internal Medicine; Internal Medicine Critical Care Medicine; Internal Medicine Hepatology; Internal Medicine Nephrology; Internal Medicine Pulmonary Disease; Radiology Vascular & Interventional Radiology; Thoracic Surgery (Cardiothoracic Vascular Surgery)
PROC: 5A1955Z Respiratory Ventilation, Greater than 96 Consecutive Hours (ICD-10-PCS; 2016-09-29)
PROC: 30233K1 Transfusion of Nonautologous Frozen Plasma into Peripheral Vein, Percutaneous Approach (ICD-10-PCS; 2016-09-30)
PROC: 30233N1 Transfusion of Nonautologous Red Blood Cells into Peripheral Vein, Percutaneous Approach (ICD-10-PCS; 2016-09-30)
PROC: 30233R1 Transfusion of Nonautologous Platelets into Peripheral Vein, Percutaneous Approach (ICD-10-PCS; 2016-09-30)
PROC: 0W9B30Z Drainage of Left Pleural Cavity with Drainage Device, Percutaneous Approach (ICD-10-PCS; principal; 2016-10-01)
PROC: 0W9930Z Drainage of Right Pleural Cavity with Drainage Device, Percutaneous Approach (ICD-10-PCS; 2016-10-01)
PROC: 0W9G3ZZ Drainage of Peritoneal Cavity, Percutaneous Approach (ICD-10-PCS; 2016-10-07)
DX: A41.9 Sepsis, unspecified organism (principal); J96.01 Acute respiratory failure with hypoxia; J69.0 Pneumonitis due to inhalation of food and vomit; G92 Toxic encephalopathy; J93.0 Spontaneous tension pneumothorax; J90 Pleural effusion, not elsewhere classified; N17.9 Acute kidney failure, unspecified; J15.212 Pneumonia due to Methicillin resistant Staphylococcus aureus; D62 Acute posthemorrhagic anemia; I85.10 Secondary esophageal varices without bleeding; D69.6 Thrombocytopenia, unspecified; Z79.899 Other long term (current) drug therapy; Z90.49 Acquired absence of other specified parts of digestive tract; Z82.49 Family history of ischemic heart disease and other diseases of the circulatory system; B19.20 Unspecified viral hepatitis C without hepatic coma; K70.30 Alcoholic cirrhosis of liver without ascites; E11.65 Type 2 diabetes mellitus with hyperglycemia; K21.9 Gastro-esophageal reflux disease without esophagitis; F41.9 Anxiety disorder, unspecified; F17.210 Nicotine dependence, cigarettes, uncomplicated; Z98.890 Other specified postprocedural states; E11.43 Type 2 diabetes mellitus with diabetic autonomic (poly)neuropathy; K31.84 Gastroparesis; K72.90 Hepatic failure, unspecified without coma
CPT/HCPCS: 31720; 32551; 36415; 36600; 49083; 71010; 74000; 76705; 80048; 80053; 80069; 80076; 80202; 81001; 82042; 82105; 82140; 82272; 82570; 82805; 82962; 83036; 83605; 83615; 83735; 83935; 83986; 84132; 84134; 84145; 84156; 84157; 84300; 84540; 85014; 85018; 85025; 85610; 85730; 86850; 86900; 86901; 86920; 87040; 87070; 87075; 87086; 87205; 87493; 87493-59; 87641; 88112; 88305; 89051; 92610-GN; 93005; 94002; 94003; 94640; 94660; 94667; 94668; 94770; 97110-GO; 97110-GP; 97163-GP; 97167-GO; 97530-GP; 97535-GO; A9270-GY; C1769; C9113; J1447; J1630; J2543; J2765; J3010; J3370; P9016; P9035; P9045; P9047; P9059